=== PATIENT | male | born 1950 | race Caucasian/White ===

== ENCOUNTER 2020-12-12 09:10 | Inpatient (IN) | payer MEDICARE, OTHER ==
[2020-12-12] MEDS ORDERED: Sodium Chloride 0.9% 1,000 ML IV ONE ×3 (09:26→15:34)
[2020-12-12] MEDS ORDERED: Bamlanivimab 700 MG, ETESEVIMAB 1,400 MG in Sodium Chloride 0.9% 100 ML IV ONE (10:00)
[2020-12-12] MEDS: Sodium Chloride 0.9% 10 ML Syringe FLUSH SCH (10:54)
--- NOTE | 2020-12-12 12:03 | CR ---
INDICATION: Positive COVID 12/12/20. CHEST, ONE VIEW: AP upright portable view of the chest was obtained 12/12/20 - no comparison. There is some patchy infiltration in the right upper middle through lower lung field on the right. There may be some minimal infiltrate also in the left lower lung field, including costophrenic angle area. Findings likely represent pneumonia, but should be correlated clinically. Early COVID-19 pneumonia may be present. The heart appeared prominent, but not grossly enlarged. The aorta is tortuous with calcification in the arch. IMPRESSION: 1. Bilateral pneumonia, right greater than left. 2. Probable ASHD. MTDD
[2020-12-12] MEDS ORDERED: Aspirin 81 MG Tab.Chew PO ONE (13:09)
[2020-12-12] MEDS ORDERED: Ticagrelor 90 MG Tab PO ONE (13:09)
[2020-12-12] MEDS ORDERED: Heparin Sodium 5,000 Units/ML Vial IVPUSH ONE (13:13)
[2020-12-12] MEDS ORDERED: Heparin Sodium/D5W 25,000 UNITS/500 ML BAG IV SCH (13:15)
[2020-12-12] MEDS ORDERED: Heparin Sodium/0.45% NaCl 25,000 UNITS/500 ML BAG IV SCH (13:30)
--- NOTE | 2020-12-12 16:04 | EDM.PDOC ---
ED HPI GENERAL MEDICAL PROBLEM - General Chief Complaint: General Stated Complaint: FALL Time Seen by Provider: 12/12/20 09:15 Source of Information: Reports: Patient History Limitations: Reports: No Limitations - History of Present Illness INITIAL COMMENTS - FREE TEXT/NARRATIVE: c/o fall from bed pt with fever and slight cough 5d ago, went to clinic 3d ago and dx with COVID lives alone, says he rolls around in his sleep, rolled out of bed this AM and found himself on the floor, too weak to get up, crawled to the phone and called 911 EMS found him on the floor, alert, and brought him here only c/o is weakness and occasional nonproductive cough, skin and clothes were damp on arrival as per RN altho were dry when I examined him no pain only med is propranolol for HTN lives alone has a tremor in his hands that is old, takes no meds for it - Related Data Allergies Allergy/AdvReac Type Severity Reaction Status Date / Time Penicillins Allergy Other Verified 12/12/20 09:30 Home Meds: Home Meds Aspirin 81 mg PO DAILY 12/12/20 [History] Multivit-Min/Iron/Folic Acid/K [Centravites Adults Tablet] 1 each PO DAILY 12/12/20 [History] Propranolol [Propranolol CR 24 Hr] 120 mg PO DAILY 12/12/20 [History] Past Medical History Cardiovascular History: Reports: Hypertension Neurological History: Reports: Other (See Below) Other Neuro History: Patient has tremors stated they did all the tests for par kinsons and ruled it out, unsure of cause. - Infectious Disease History Infectious Disease History: Reports: Chicken Pox, Measles, Mumps, Novel Coronavirus Social & Family History - Tobacco Use Tobacco Use Status *Q: Unknown Ever Used Tobacco - Caffeine Use Caffeine Use: Reports: Coffee - Alcohol Use Days Per Week of Alcohol Use: 1 Number of Drinks Per Day: 4 Total Drinks Per Week: 4 - Recreational Drug Use Recreational Drug Use: No ED ROS GENERAL - Review of Systems Review Of Systems: See Below Constitutional: Reports: Fever, Weakness, Fatigue, Diaphoresis, Decreased Appetite HEENT: Reports: No Symptoms Respiratory: Reports: Cough Cardiovascular: Reports: No Symptoms Endocrine: Reports: No Symptoms GI/Abdominal: Reports: No Symptoms : Reports: No Symptoms Musculoskeletal: Reports: No Symptoms Skin: Reports: No Symptoms Neurological: Reports: No Symptoms Psychiatric: Reports: No Symptoms Hematologic/Lymphatic: Reports: No Symptoms Immunologic: Reports: No Symptoms ED EXAM, GENERAL - Physical Exam Exam: See Below Exam Limited By: No Limitations General Appearance: Alert, WD/WN, No Apparent Distress, Other (alert, pleasant, NAD) Nose: Normal Inspection Throat/Mouth: Normal Inspection, Normal Voice, No Airway Compromise Head: Atraumatic, Normocephalic Neck: Normal Inspection, Supple, Non-Tender, Full Range of Motion. No: Lymphadenopathy (R), Lymphadenopathy (L) Respiratory/Chest: No Respiratory Distress, Lungs Clear, Normal Breath Sounds, Chest Non-Tender Cardiovascular: Regular Rate, Rhythm, No Edema, Other (2/6 DESTINEE at LSB) GI/Abdominal: Soft, Non-Tender, No Distention Back Exam: Normal Inspection, Full Range of Motion Extremities: Normal Inspection, Normal Range of Motion, Non-Tender, No Pedal Edema Neurological: Alert, Oriented, CN II-XII Intact, Normal Cognition, No Motor/Sensory Deficits Psychiatric: Normal Affect, Normal Mood Skin Exam: Warm, Dry, Intact, Normal Color, No Rash Lymphatic: No Adenopathy Course - Vital Signs Last Recorded V/S: Last Vital Signs Temp 36.4 C 12/12/20 10:16 Pulse 72 12/12/20 10:51 Resp 18 12/12/20 10:51 BP 101/57 L 12/12/20 10:51 Pulse Ox 95 12/12/20 10:51 - Orders/Labs/Meds Orders: Active Orders 24 hr Category Date Time Status EKG Documentation Completion [RC] ASDIRECTED Care 12/12/20 09:27 Active EKG Documentation Completion [RC] ASDIRECTED Care 12/12/20 13:11 Active Oxygen Therapy, ED [RC] ASDIRECTED Care 12/12/20 13:12 Active Vital Signs [RC] Q15M Care 12/12/20 09:31 Active CREATINE KINASE,CK [CHEM] Timed Lab 12/12/20 17:00 Ordered D-DIMER QUANTITATIVE [COAG] Stat Lab 12/12/20 15:49 Ordered TROPONIN I [CHEM] Routine Lab 12/12/20 17:00 Ordered aPTT [PTT,PARTIAL THROMBOPLSTIN TIME] [COAG] Q6H Lab 12/12/20 19:00 Ordered aPTT [PTT,PARTIAL THROMBOPLSTIN TIME] [COAG] Q6 Lab 12/13/20 01:00 Ordered aPTT [PTT,PARTIAL THROMBOPLSTIN TIME] [COAG] Q6 Lab 12/13/20 07:00 Ordered aPTT [PTT,PARTIAL THROMBOPLSTIN TIME] [COAG] Q6 Lab 12/13/20 13:00 Ordered aPTT [PTT,PARTIAL THROMBOPLSTIN TIME] [COAG] Q6 Lab 12/13/20 19:00 Ordered aPTT [PTT,PARTIAL THROMBOPLSTIN TIME] [COAG] Q6 Lab 12/14/20 01:00 Ordered Heparin Sodium/0.45% NaCl [Heparin 25,000 Units in 1/2 Med 12/12/20 13:30 Active NS 500 ML] 25,000 units in 500 ml IV TITRATE Sodium Chloride 0.9% [Normal Saline] 1,000 ml Med 12/12/20 15:34 Active IV .BOLUS Sodium Chloride 0.9% [Saline Flush] Med 12/12/20 09:45 Active 30 ml FLUSH ASDIRECTED EKG 12 Lead [EK] Routine Ther 12/12/20 09:26 Ordered EKG 12 Lead [EK] Routine Ther 12/12/20 13:10 Ordered EKG 12 Lead [EK] Routine Ther 12/12/20 17:00 Ordered Medication Orders Heparin Sodium/Sodium Chloride (Heparin 25,000 Units In 1/2 Ns 500 Ml) 25,000 units in 500 mls @ 19.998 mls/hr IV TITRATE WILDA; Protocol Last Admin: 12/12/20 13:38 Dose: 10.02 units/kg/hr, 19.998 mls/hr Documented by: JAMES Cosigned by: TIMO Sodium Chloride (Normal Saline) 1,000 mls @ 999 mls/hr IV .BOLUS ONE Stop: 12/12/20 16:34 Last Admin: 12/12/20 15:40 Dose: 999 mls/hr Documented by: JAMES Sodium Chloride (Sodium Chloride 0.9% 10 Ml Syringe) 30 ml FLUSH ASDIRECTED WILDA Labs: Laboratory Tests 12/12/20 12/12/20 12/12/20 Range/Units 09:50 09:50 09:50 WBC 4.6 (3.2-10.1) x10-3/uL RBC 5.24 (3.90-5.90) x10(6)uL Hgb 16.1 (12.9-17.7) g/dL Hct 49.8 (38.3-50.1) % MCV 95.2 (80.8-98.7) fL MCH 30.8 (27.0-33.3) pg MCHC 32.4 (28.7-35.3) g/dL RDW 13.5 (12.4-15.0) % Plt Count 117 (117-477) x10(3)uL MPV 7.5 (6.7-11.0) fL Neut % (Auto) 78.5 H (40.3-71.8) % Lymph % (Auto) 11.7 L (15.8-45.3) % [place] % (Auto) 9.3 (5.5-15.2) % Eos % (Auto) 0.0 L (0.1-6.8) % Baso % (Auto) 0.5 (0.3-3.8) % Neut # (Auto) 3.6 (1.7-6.9) x10-3/uL Lymph # (Auto) 0.5 (0.5-4.5) x10-3/uL [place] # (Auto) 0.4 (0.0-1.2) x10-3/uL Eos # (Auto) 0.0 (0.0-0.6) x10-3/uL Baso # (Auto) 0.0 (0.0-0.3) x10-3/uL PT (9.0-11.1) sec INR (1.00-1.24) APTT (24.4-33.2) SECONDS Sodium 136 (135-145) mmol/L Potassium 4.6 (3.5-5.3) mmol/L Chloride 100 (100-110) mmol/L Carbon Dioxide 25 (21-32) mmol/L BUN 31 H (7-18) mg/dL Creatinine 1.6 H (0.70-1.30) mg/dL Est Cr Clr Drug Dosing TNP Estimated GFR (MDRD) 43 L (>60) BUN/Creatinine Ratio 19.4 (9-20) Glucose 97 (80-116) mg/dL Calcium 9.0 (8.6-10.2) mg/dL Total Bilirubin 0.9 (0.1-1.3) mg/dL AST 63 H (5-25) IU/L ALT 42 H (12-36) U/L Alkaline Phosphatase 89 (56-112) IU/L Creatine Kinase (60-160) IU/L Troponin I 124.4 H* (4.0-60.3) pg/mL C-Reactive Protein 5.5 H* (0.5-0.9) mg/dL Total Protein 7.1 (6.0-8.0) g/dL Albumin 3.6 (3.2-4.6) g/dL Globulin 3.5 g/dL Albumin/Globulin Ratio 1.0 TSH, Ultra Sensitive (0.36-3.74) IU/mL Urine Color (YELLOW) Urine Appearance (CLEAR) Urine pH (5.0-6.5) Ur Specific [place] (1.010-1.025) Urine Protein (NEGATIVE) mg/dL Urine Glucose (UA) (NORMAL) mg/dL Urine Ketones (NEGATIVE) mg/dL Urine Occult Blood (NEGATIVE) Urine Nitrite (NEGATIVE) Urine Bilirubin (NEGATIVE) Urine Urobilinogen (NEGATIVE) mg/dL Ur Leukocyte Esterase (NEGATIVE) Urine RBC (0-5) Urine WBC (0-5) Ur Squamous Epith Cells (NS,R,O) Urine Bacteria (NS) Coarse Granular Casts (NS) 12/12/20 12/12/20 12/12/20 Range/Units 09:50 09:50 09:50 WBC (3.2-10.1) x10-3/uL RBC (3.90-5.90) x10(6)uL Hgb (12.9-17.7) g/dL Hct (38.3-50.1) % MCV (80.8-98.7) fL MCH (27.0-33.3) pg MCHC (28.7-35.3) g/dL RDW (12.4-15.0) % Plt Count (117-477) x10(3)uL MPV (6.7-11.0) fL Neut % (Auto) (40.3-71.8) % Lymph % (Auto) (15.8-45.3) % [place] % (Auto) (5.5-15.2) % Eos % (Auto) (0.1-6.8) % Baso % (Auto) (0.3-3.8) % Neut # (Auto) (1.7-6.9) x10-3/uL Lymph # (Auto) (0.5-4.5) x10-3/uL [place] # (Auto) (0.0-1.2) x10-3/uL Eos # (Auto) (0.0-0.6) x10-3/uL Baso # (Auto) (0.0-0.3) x10-3/uL PT 10.7 (9.0-11.1) sec INR 0.99 L (1.00-1.24) APTT 30.4 (24.4-33.2) SECONDS Sodium (135-145) mmol/L Potassium (3.5-5.3) mmol/L Chloride (100-110) mmol/L Carbon Dioxide (21-32) mmol/L BUN (7-18) mg/dL Creatinine (0.70-1.30) mg/dL Est Cr Clr Drug Dosing Estimated GFR (MDRD) (>60) BUN/Creatinine Ratio (9-20) Glucose (80-116) mg/dL Calcium (8.6-10.2) mg/dL Total Bilirubin (0.1-1.3) mg/dL AST (5-25) IU/L ALT (12-36) U/L Alkaline Phosphatase (56-112) IU/L Creatine Kinase 1465 H* (60-160) IU/L Troponin I (4.0-60.3) pg/mL C-Reactive Protein (0.5-0.9) mg/dL Total Protein (6.0-8.0) g/dL Albumin (3.2-4.6) g/dL Globulin g/dL Albumin/Globulin Ratio TSH, Ultra Sensitive 2.06 (0.36-3.74) IU/mL Urine Color (YELLOW) Urine Appearance (CLEAR) Urine pH (5.0-6.5) Ur Specific [place] (1.010-1.025) Urine Protein (NEGATIVE) mg/dL Urine Glucose (UA) (NORMAL) mg/dL Urine Ketones (NEGATIVE) mg/dL Urine Occult Blood (NEGATIVE) Urine Nitrite (NEGATIVE) Urine Bilirubin (NEGATIVE) Urine Urobilinogen (NEGATIVE) mg/dL Ur Leukocyte Esterase (NEGATIVE) Urine RBC (0-5) Urine WBC (0-5) Ur Squamous Epith Cells (NS,R,O) Urine Bacteria (NS) Coarse Granular Casts (NS) 12/12/20 12/12/20 Range/Units 12:00 14:00 WBC (3.2-10.1) x10-3/uL RBC (3.90-5.90) x10(6)uL Hgb (12.9-17.7) g/dL Hct (38.3-50.1) % MCV (80.8-98.7) fL MCH (27.0-33.3) pg MCHC (28.7-35.3) g/dL RDW (12.4-15.0) % Plt Count (117-477) x10(3)uL MPV (6.7-11.0) fL Neut % (Auto) (40.3-71.8) % Lymph % (Auto) (15.8-45.3) % [place] % (Auto) (5.5-15.2) % Eos % (Auto) (0.1-6.8) % Baso % (Auto) (0.3-3.8) % Neut # (Auto) (1.7-6.9) x10-3/uL Lymph # (Auto) (0.5-4.5) x10-3/uL [place] # (Auto) (0.0-1.2) x10-3/uL Eos # (Auto) (0.0-0.6) x10-3/uL Baso # (Auto) (0.0-0.3) x10-3/uL PT (9.0-11.1) sec INR (1.00-1.24) APTT (24.4-33.2) SECONDS Sodium (135-145) mmol/L Potassium (3.5-5.3) mmol/L Chloride (100-110) mmol/L Carbon Dioxide (21-32) mmol/L BUN (7-18) mg/dL Creatinine (0.70-1.30) mg/dL Est Cr Clr Drug Dosing Estimated GFR (MDRD) (>60) BUN/Creatinine Ratio (9-20) Glucose (80-116) mg/dL Calcium (8.6-10.2) mg/dL Total Bilirubin (0.1-1.3) mg/dL AST (5-25) IU/L ALT (12-36) U/L Alkaline Phosphatase (56-112) IU/L Creatine Kinase (60-160) IU/L Troponin I 387.1 H* (4.0-60.3) pg/mL C-Reactive Protein (0.5-0.9) mg/dL Total Protein (6.0-8.0) g/dL Albumin (3.2-4.6) g/dL Globulin g/dL Albumin/Globulin Ratio TSH, Ultra Sensitive (0.36-3.74) IU/mL Urine Color Yellow (YELLOW) Urine Appearance Slightly cloudy (CLEAR) Urine pH 5.0 (5.0-6.5) Ur Specific [place] 1.030 H (1.010-1.025) Urine Protein 500 H (NEGATIVE) mg/dL Urine Glucose (UA) Normal (NORMAL) mg/dL Urine Ketones 50 H (NEGATIVE) mg/dL Urine Occult Blood Large H (NEGATIVE) Urine Nitrite Negative (NEGATIVE) Urine Bilirubin Negative (NEGATIVE) Urine Urobilinogen Normal (NEGATIVE) mg/dL Ur Leukocyte Esterase Negative (NEGATIVE) Urine RBC 0-5 (0-5) Urine WBC 0-5 (0-5) Ur Squamous Epith Cells Occasional (NS,R,O) Urine Bacteria Few H (NS) Coarse Granular Casts Few H (NS) Meds: Medications Generic Name Dose Route Start Last Admin Trade Name Chencho PRN Reason Stop Dose Admin Heparin Sodium/Sodium Chloride 25,000 units in 500 mls @ 19.998 mls/hr 12/12/20 13:30 12/12/20 13:38 Heparin 25,000 Units In 1/2 Ns 500 Ml IV 10.02 units/kg/hr TITRATE WILDA 19.998 mls/hr Administration Protocol 10.02 UNITS/KG/HR Sodium Chloride 1,000 mls @ 999 mls/hr 12/12/20 15:34 12/12/20 15:40 Normal Saline IV 12/12/20 16:34 999 mls/hr .BOLUS ONE Administration Sodium Chloride 30 ml 12/12/20 09:45 Sodium Chloride 0.9% 10 Ml Syringe FLUSH ASDIRECTED WILDA Discontinued Medications Generic Name Dose Route Start Last Admin Trade Name Chencho PRN Reason Stop Dose Admin Aspirin 324 mg 12/12/20 13:09 12/12/20 13:37 Aspirin 81 Mg Tab.Chew PO 12/12/20 13:10 324 mg ONETIME ONE Administration Heparin Sodium (Porcine) 5,000 units 12/12/20 13:13 12/12/20 13:37 Heparin Sodium 5,000 Units/Ml Vial IVPUSH 12/12/20 13:14 5,000 units ONETIME ONE Administration Sodium Chloride 1,000 mls @ 999 mls/hr 12/12/20 09:26 12/12/20 09:40 Normal Saline IV 12/12/20 10:26 999 mls/hr .BOLUS ONE Administration Bamlanivimab 700 mg/ 160 mls @ 310 mls/hr 12/12/20 10:00 12/12/20 10:08 Etesevimab 1,400 mg/ Sodium IV 12/12/20 10:30 310 mls/hr Chloride ONETIME ONE Administration Sodium Chloride 1,000 mls @ 999 mls/hr 12/12/20 13:40 12/12/20 13:40 Normal Saline IV 12/12/20 14:40 999 mls/hr .BOLUS ONE Administration Ticagrelor 180 mg 12/12/20 13:09 12/12/20 13:37 Ticagrelor 90 Mg Tab PO 12/12/20 13:10 180 mg ONETIME ONE Administration - Re-Assessments/Exams Free Text/Narrative Re-Assessment/Exam: 12/12/20 16:29 15:55 d/w Dr Shivam Wasserman cardiology who said that transfer of pt not needed, she recommended continuing anticoagulation for 24 hours, d/c on ASA and BB and NTG SL prn, with outpt f/u with cardiology will change from heparin drip to Lovenox as this works better on the floor pt has remained stable, he likely was mildly hypoxic d/t his COVID pneumonia during the night, precipitating the [place], pt has been 93-97-5 on RA here, yet d/t the risk of hypoxia when he falls asleep, will keep him on O2 2/min IV 4:50p d/w Dr Malcolm who accepted pt in admission Departure - Departure Time of Disposition: 16:07 Disposition: Admitted As Inpatient 66 Condition: Fair Clinical Impression: Pneumonia due to COVID-19 virus, Rhabdomyolysis, NSTEMI (non-ST elevated myocardial infarction), Moderate dehydration, Ketonuria, Fall from bed, Abrasion of both knees, Acute renal insufficiency, Elevated liver function tests - Discharge Information *PRESCRIPTION DRUG MONITORING PROGRAM REVIEWED*: Not Applicable *COPY OF PRESCRIPTION DRUG MONITORING REPORT IN PATIENT KENDRICK: Not Applicable Referrals: Mark Lockett MD [Primary Care Provider] - Forms: ED Department Discharge Sepsis Event Note (ED) - Evaluation Sepsis Screening Result: No Definite Risk - Focused Exam Vital Signs: Vital Signs Temp Pulse Resp BP Pulse Ox 12/12/20 10:51 72 18 101/57 L 95 12/12/20 10:45 74 16 94/57 L 95 12/12/20 10:35 77 16 101/64 95 12/12/20 10:32 75 16 95/56 L 95 12/12/20 10:31 77 16 99/58 L 95 12/12/20 10:16 36.4 C 79 16 118/63 94 L 12/12/20 09:12 36.4 C 85 18 134/66 94 L - My Orders Last 24 Hours: My Active Orders 12/12/20 09:26 EKG 12 Lead [EK] Routine 12/12/20 09:27 EKG Documentation Completion [RC] ASDIRECTED 12/12/20 09:31 Vital Signs [RC] Q15M 12/12/20 09:45 Sodium Chloride 0.9% [Saline Flush] 30 ml FLUSH ASDIRECTED 12/12/20 13:10 EKG 12 Lead [EK] Routine 12/12/20 13:11 EKG Documentation Completion [RC] ASDIRECTED 12/12/20 13:12 Oxygen Therapy, ED [RC] ASDIRECTED 12/12/20 13:30 Heparin Sodium/0.45% NaCl [Heparin 25,000 Units in 1/2 NS 500 ML] 25,000 units in 500 ml IV TITRATE 12/12/20 15:34 Sodium Chloride 0.9% [Normal Saline] 1,000 ml IV .BOLUS 12/12/20 15:49 D-DIMER QUANTITATIVE [COAG] Stat 12/12/20 17:00 CREATINE KINASE,CK [CHEM] Timed TROPONIN I [CHEM] Routine EKG 12 Lead [EK] Routine 12/12/20 19:00 aPTT [PTT,PARTIAL THROMBOPLSTIN TIME] [COAG] Q6H 12/13/20 01:00 aPTT [PTT,PARTIAL THROMBOPLSTIN TIME] [COAG] Q6H 12/13/20 07:00 aPTT [PTT,PARTIAL THROMBOPLSTIN TIME] [COAG] Q6H 12/13/20 13:00 aPTT [PTT,PARTIAL THROMBOPLSTIN TIME] [COAG] Q6H 12/13/20 19:00 aPTT [PTT,PARTIAL THROMBOPLSTIN TIME] [COAG] Q6H 12/14/20 01:00 aPTT [PTT,PARTIAL THROMBOPLSTIN TIME] [COAG] Q6H - Assessment/Plan Last 24 Hours: My Active Orders 12/12/20 09:26 EKG 12 Lead [EK] Routine 12/12/20 09:27 EKG Documentation Completion [RC] ASDIRECTED 12/12/20 09:31 Vital Signs [RC] Q15M 12/12/20 09:45 Sodium Chloride 0.9% [Saline Flush] 30 ml FLUSH ASDIRECTED 12/12/20 13:10 EKG 12 Lead [EK] Routine 12/12/20 13:11 EKG Documentation Completion [RC] ASDIRECTED 12/12/20 13:12 Oxygen Therapy, ED [RC] ASDIRECTED 12/12/20 13:30 Heparin Sodium/0.45% NaCl [Heparin 25,000 Units in 1/2 NS 500 ML] 25,000 units in 500 ml IV TITRATE 12/12/20 15:34 Sodium Chloride 0.9% [Normal Saline] 1,000 ml IV .BOLUS 12/12/20 15:49 D-DIMER QUANTITATIVE [COAG] Stat 12/12/20 17:00 CREATINE KINASE,CK [CHEM] Timed TROPONIN I [CHEM] Routine EKG 12 Lead [EK] Routine 12/12/20 19:00 aPTT [PTT,PARTIAL THROMBOPLSTIN TIME] [COAG] Q6H 12/13/20 01:00 aPTT [PTT,PARTIAL THROMBOPLSTIN TIME] [COAG] Q6H 12/13/20 07:00 aPTT [PTT,PARTIAL THROMBOPLSTIN TIME] [COAG] Q6H 11/06/21 13:00 aPTT [PTT,PARTIAL THROMBOPLSTIN TIME] [COAG] Q6H 12/13/20 19:00 aPTT [PTT,PARTIAL THROMBOPLSTIN TIME] [COAG] Q6H 12/14/20 01:00 aPTT [PTT,PARTIAL THROMBOPLSTIN TIME] [COAG] Q6H
[2020-12-12] MEDS: Enoxaparin 100 MG/1 ML Syringe SUBCUT SCH (17:00)
--- NOTE | 2020-12-12 18:22 | PCM.EKG ---
#1 Interpretation EKG Date: 12/12/20 Time: 17:51 EKG Interpretation Comments: Patient has left upper extremity essential tremor which yields very poor baseline quality. Leads II, 3, aVF are unreadable. However, there appears to be ST-T segment abnormalities in the lateral leads that would suggest lateral ischemia. Once again this is unreliable.
[2020-12-12] MEDS ORDERED: Enoxaparin 100 MG/1 ML Syringe SUBCUT SCH (18:30)
--- NOTE | 2020-12-12 18:35 | PCM.HP.2 ---
H&P History of Present Illness - General Date of Service: 12/12/20 Admit Problem/Dx: Admission Diagnosis/Problem Admission Diagnosis/Problem Pneumonia Source of Information: Patient, Provider - History of Present Illness Initial Comments - Free Text/Narative: 70-year-old gentleman came to the emergency department after becoming so weak that he fell to the floor and had to crawl to the door to ask for help. He was brought to the emergency department by EMS. His recent past medical history is significant for having been diagnosed with COVID-19 approximately 2 days ago. In the emergency department he was found to have significantly elevated troponin likely secondary to demand ischemia secondary to hypoxia. He also had elevated CK likely due to being on the floor for approximately 1 hour. He has abrasions on his shins, knees, hands, elbows. He also has mild acute kidney injury. His past medical history is mild and is only significant for mild hypertension and essential tremor treated with propranolol. - Related Data Allergies/Adverse Reactions: Allergies Allergy/AdvReac Type Severity Reaction Status Date / Time Penicillins Allergy Other Verified 12/12/20 09:30 Home Medications: Home Meds Aspirin 81 mg PO DAILY 12/12/20 [History] Multivit-Min/Iron/Folic Acid/K [Centravites Adults Tablet] 1 each PO DAILY 12/12/20 [History] Propranolol [Propranolol CR 24 Hr] 120 mg PO DAILY 12/12/20 [History] Past Medical History Cardiovascular History: Reports: Hypertension Neurological History: Reports: Other (See Below) Other Neuro History: Patient has tremors stated they did all the tests for parkinsons and ruled it out, unsure of cause. - Infectious Disease History Infectious Disease History: Reports: Chicken Pox, Measles, Mumps, Novel Coronavirus Social & Family History - Tobacco Use Tobacco Use Status *Q: Never Tobacco User Second Hand Smoke Exposure: No - Caffeine Use Caffeine Use: Reports: Coffee - Alcohol Use Days Per Week of Alcohol Use: 1 Number of Drinks Per Day: 4 Total Drinks Per Week: 4 - Recreational Drug Use Recreational Drug Use: No H&P Review of Systems - Review of Systems: Review Of Systems: See Below General: Reports: Weakness HEENT: Reports: No Symptoms Pulmonary: Reports: Shortness of Breath, Cough Cardiovascular: Reports: No Symptoms Gastrointestinal: Reports: No Symptoms Genitourinary: Reports: No Symptoms Musculoskeletal: Reports: No Symptoms Skin: Reports: Other (Abrasions after crawling on the floor) Psychiatric: Reports: No Symptoms Neurological: Reports: No Symptoms Hematologic/Lymphatic: Reports: No Symptoms Immunologic: Reports: No Symptoms Exam - Exam Exam: See Below - Vital Signs Vital Signs: Last Vital Signs Temp 37.7 C 12/12/20 17:30 Pulse 78 12/12/20 17:30 Resp 18 12/12/20 17:30 BP 117/64 12/12/20 17:30 Pulse Ox 96 12/12/20 17:30 Weight: 102.421 kg - Exam Quality Assessment: Supplemental Oxygen, DVT Prophylaxis General: Alert, Oriented, Cooperative HEENT: EOMI Neck: Supple Lungs: Crackles Cardiovascular: Regular Rate, Regular Rhythm GI/Abdominal Exam: Normal Bowel Sounds, Soft, Non-Tender Back Exam: Normal Inspection. No: CVA Tenderness (R), CVA Tenderness (L) Extremities: Normal Inspection, No Pedal Edema Peripheral Pulses: 2+: Radial (L), Radial (R), Dorsalis Pedis (L), Dorsalis Pedis (R) Skin: Other (Mild abrasion on shins, knees, forearms/elbows, no bleeding or discharge at this time) Neurological: Cranial Nerves Intact Neuro Extensive - Mental Status: Alert, Oriented x3, Normal Mood/Affect, Normal Cognition Psychiatric: Alert, Normal Affect - Patient Data Lab Results Last 24 hrs: Laboratory Results - last 24 hr 12/12/20 12/12/20 12/12/20 Range/Units 09:50 09:50 09:50 WBC 4.6 (3.2-10.1) x10-3/uL RBC 5.24 (3.90-5.90) x10(6)uL Hgb 16.1 (12.9-17.7) g/dL Hct 49.8 (38.3-50.1) % MCV 95.2 (80.8-98.7) fL MCH 30.8 (27.0-33.3) pg MCHC 32.4 (28.7-35.3) g/dL RDW 13.5 (12.4-15.0) % Plt Count 117 (117-477) x10(3)uL MPV 7.5 (6.7-11.0) fL Neut % (Auto) 78.5 H (40.3-71.8) % Lymph % (Auto) 11.7 L (15.8-45.3) % Howell % (Auto) 9.3 (5.5-15.2) % Eos % (Auto) 0.0 L (0.1-6.8) % Baso % (Auto) 0.5 (0.3-3.8) % Neut # (Auto) 3.6 (1.7-6.9) x10-3/uL Lymph # (Auto) 0.5 (0.5-4.5) x10-3/uL Howell # (Auto) 0.4 (0.0-1.2) x10-3/uL Eos # (Auto) 0.0 (0.0-0.6) x10-3/uL Baso # (Auto) 0.0 (0.0-0.3) x10-3/uL PT (9.0-11.1) sec INR (1.00-1.24) APTT (24.4-33.2) SECONDS Sodium 136 (135-145) mmol/L Potassium 4.6 (3.5-5.3) mmol/L Chloride 100 (100-110) mmol/L Carbon Dioxide 25 (21-32) mmol/L BUN 31 H (7-18) mg/dL Creatinine 1.6 H (0.70-1.30) mg/dL Est Cr Clr Drug Dosing TNP Estimated GFR (MDRD) 43 L (>60) BUN/Creatinine Ratio 19.4 (9-20) Glucose 97 (80-116) mg/dL Calcium 9.0 (8.6-10.2) mg/dL Total Bilirubin 0.9 (0.1-1.3) mg/dL AST 63 H (5-25) IU/L ALT 42 H (12-36) U/L Alkaline Phosphatase 89 (56-112) IU/L Creatine Kinase (60-160) IU/L Troponin I 124.4 H* (4.0-60.3) pg/mL C-Reactive Protein 5.5 H* (0.5-0.9) mg/dL Total Protein 7.1 (6.0-8.0) g/dL Albumin 3.6 (3.2-4.6) g/dL Globulin 3.5 g/dL Albumin/Globulin Ratio 1.0 TSH, Ultra Sensitive (0.36-3.74) IU/mL Urine Color (YELLOW) Urine Appearance (CLEAR) Urine pH (5.0-6.5) Ur Specific [place] (1.010-1.025) Urine Protein (NEGATIVE) mg/dL Urine Glucose (UA) (NORMAL) mg/dL Urine Ketones (NEGATIVE) mg/dL Urine Occult Blood (NEGATIVE) Urine Nitrite (NEGATIVE) Urine Bilirubin (NEGATIVE) Urine Urobilinogen (NEGATIVE) mg/dL Ur Leukocyte Esterase (NEGATIVE) Urine RBC (0-5) Urine WBC (0-5) Ur Squamous Epith Cells (NS,R,O) Urine Bacteria (NS) Coarse Granular Casts (NS) 12/12/20 12/12/20 12/12/20 Range/Units 09:50 09:50 09:50 WBC (3.2-10.1) x10-3/uL RBC (3.90-5.90) x10(6)uL Hgb (12.9-17.7) g/dL Hct (38.3-50.1) % MCV (80.8-98.7) fL MCH (27.0-33.3) pg MCHC (28.7-35.3) g/dL RDW (12.4-15.0) % Plt Count (117-477) x10(3)uL MPV (6.7-11.0) fL Neut % (Auto) (40.3-71.8) % Lymph % (Auto) (15.8-45.3) % Howell % (Auto) (5.5-15.2) % Eos % (Auto) (0.1-6.8) % Baso % (Auto) (0.3-3.8) % Neut # (Auto) (1.7-6.9) x10-3/uL Lymph # (Auto) (0.5-4.5) x10-3/uL Howell # (Auto) (0.0-1.2) x10-3/uL Eos # (Auto) (0.0-0.6) x10-3/uL Baso # (Auto) (0.0-0.3) x10-3/uL PT 10.7 (9.0-11.1) sec INR 0.99 L (1.00-1.24) APTT 30.4 (24.4-33.2) SECONDS Sodium (135-145) mmol/L Potassium (3.5-5.3) mmol/L Chloride (100-110) mmol/L Carbon Dioxide (21-32) mmol/L BUN (7-18) mg/dL Creatinine (0.70-1.30) mg/dL Est Cr Clr Drug Dosing Estimated GFR (MDRD) (>60) BUN/Creatinine Ratio (9-20) Glucose (80-116) mg/dL Calcium (8.6-10.2) mg/dL Total Bilirubin (0.1-1.3) mg/dL AST (5-25) IU/L ALT (12-36) U/L Alkaline Phosphatase (56-112) IU/L Creatine Kinase 1465 H* (60-160) IU/L Troponin I (4.0-60.3) pg/mL C-Reactive Protein (0.5-0.9) mg/dL Total Protein (6.0-8.0) g/dL Albumin (3.2-4.6) g/dL Globulin g/dL Albumin/Globulin Ratio TSH, Ultra Sensitive 2.06 (0.36-3.74) IU/mL Urine Color (YELLOW) Urine Appearance (CLEAR) Urine pH (5.0-6.5) Ur Specific [place] (1.010-1.025) Urine Protein (NEGATIVE) mg/dL Urine Glucose (UA) (NORMAL) mg/dL Urine Ketones (NEGATIVE) mg/dL Urine Occult Blood (NEGATIVE) Urine Nitrite (NEGATIVE) Urine Bilirubin (NEGATIVE) Urine Urobilinogen (NEGATIVE) mg/dL Ur Leukocyte Esterase (NEGATIVE) Urine RBC (0-5) Urine WBC (0-5) Ur Squamous Epith Cells (NS,R,O) Urine Bacteria (NS) Coarse Granular Casts (NS) 12/12/20 12/12/20 Range/Units 12:00 14:00 WBC (3.2-10.1) x10-3/uL RBC (3.90-5.90) x10(6)uL Hgb (12.9-17.7) g/dL Hct (38.3-50.1) % MCV (80.8-98.7) fL MCH (27.0-33.3) pg MCHC (28.7-35.3) g/dL RDW (12.4-15.0) % Plt Count (117-477) x10(3)uL MPV (6.7-11.0) fL Neut % (Auto) (40.3-71.8) % Lymph % (Auto) (15.8-45.3) % Howell % (Auto) (5.5-15.2) % Eos % (Auto) (0.1-6.8) % Baso % (Auto) (0.3-3.8) % Neut # (Auto) (1.7-6.9) x10-3/uL Lymph # (Auto) (0.5-4.5) x10-3/uL Howell # (Auto) (0.0-1.2) x10-3/uL Eos # (Auto) (0.0-0.6) x10-3/uL Baso # (Auto) (0.0-0.3) x10-3/uL PT (9.0-11.1) sec INR (1.00-1.24) APTT (24.4-33.2) SECONDS Sodium (135-145) mmol/L Potassium (3.5-5.3) mmol/L Chloride (100-110) mmol/L Carbon Dioxide (21-32) mmol/L BUN (7-18) mg/dL Creatinine (0.70-1.30) mg/dL Est Cr Clr Drug Dosing Estimated GFR (MDRD) (>60) BUN/Creatinine Ratio (9-20) Glucose (80-116) mg/dL Calcium (8.6-10.2) mg/dL Total Bilirubin (0.1-1.3) mg/dL AST (5-25) IU/L ALT (12-36) U/L Alkaline Phosphatase (56-112) IU/L Creatine Kinase (60-160) IU/L Troponin I 387.1 H* (4.0-60.3) pg/mL C-Reactive Protein (0.5-0.9) mg/dL Total Protein (6.0-8.0) g/dL Albumin (3.2-4.6) g/dL Globulin g/dL Albumin/Globulin Ratio TSH, Ultra Sensitive (0.36-3.74) IU/mL Urine Color Yellow (YELLOW) Urine Appearance Slightly cloudy (CLEAR) Urine pH 5.0 (5.0-6.5) Ur Specific [place] 1.030 H (1.010-1.025) Urine Protein 500 H (NEGATIVE) mg/dL Urine Glucose (UA) Normal (NORMAL) mg/dL Urine Ketones 50 H (NEGATIVE) mg/dL Urine Occult Blood Large H (NEGATIVE) Urine Nitrite Negative (NEGATIVE) Urine Bilirubin Negative (NEGATIVE) Urine Urobilinogen Normal (NEGATIVE) mg/dL Ur Leukocyte Esterase Negative (NEGATIVE) Urine RBC 0-5 (0-5) Urine WBC 0-5 (0-5) Ur Squamous Epith Cells Occasional (NS,R,O) Urine Bacteria Few H (NS) Coarse Granular Casts Few H (NS) Result Diagrams: 12/12/20 09:50 12/12/20 09:50 Sepsis Event Note - Evaluation Sepsis Screening Result: No Definite Risk - Focused Exam Vital Signs: Vital Signs Temp Pulse Resp BP Pulse Ox 12/12/20 17:30 37.7 C 78 18 117/64 96 12/12/20 10:51 72 18 101/57 L 95 12/12/20 10:45 74 16 94/57 L 95 12/12/20 10:35 77 16 101/64 95 12/12/20 10:32 75 16 95/56 L 95 12/12/20 10:31 77 16 99/58 L 95 12/12/20 10:16 36.4 C 79 16 118/63 94 L 12/12/20 09:12 36.4 C 85 18 134/66 94 L - Problem List (1) Hypertension SNOMED Code(s): 15499293 ICD Code: I10 - ESSENTIAL (PRIMARY) HYPERTENSION Status: Chronic Current Visit: Yes (2) Essential tremor SNOMED Code(s): 278029430 ICD Code: G25.0 - ESSENTIAL TREMOR Status: Chronic Current Visit: Yes (3) Palliative care encounter SNOMED Code(s): 018506811, 974072932 ICD Code: Z51.5 - ENCOUNTER FOR PALLIATIVE CARE Status: Acute Current Visit: Yes (4) Abrasion of both knees SNOMED Code(s): 108728284 ICD Code: S80.211A - ABRASION, RIGHT KNEE, INITIAL ENCOUNTER; S80.212A - ABRASION, LEFT KNEE, INITIAL ENCOUNTER Status: Acute Current Visit: Yes (5) Acute renal insufficiency SNOMED Code(s): 469695573 ICD Code: N28.9 - DISORDER OF KIDNEY AND URETER, UNSPECIFIED Status: Acute Current Visit: Yes (6) Elevated liver function tests SNOMED Code(s): 898139361 ICD Code: R79.89 - OTHER SPECIFIED ABNORMAL FINDINGS OF BLOOD CHEMISTRY Status: Acute Current Visit: Yes (7) Fall from bed SNOMED Code(s): 82848362 ICD Code: W06.XXXA - FALL FROM BED, INITIAL ENCOUNTER Status: Acute Current Visit: Yes (8) Ketonuria SNOMED Code(s): 341560105 ICD Code: R82.4 - ACETONURIA Status: Acute Current Visit: Yes (9) Moderate dehydration SNOMED Code(s): 0235879181133 ICD Code: E86.0 - DEHYDRATION Status: Acute Current Visit: Yes (10) NSTEMI (non-ST elevated myocardial infarction) SNOMED Code(s): 16317072 ICD Code: I21.4 - NON-ST ELEVATION (NSTEMI) MYOCARDIAL INFARCTION Status: Acute Current Visit: Yes (11) Pneumonia due to COVID-19 virus SNOMED Code(s): 176998448925859412 ICD Code: U07.1 - COVID-19; J12.82 - PNEUMONIA DUE TO CORONAVIRUS DISEASE 2019 Status: Acute Current Visit: Yes (12) Hematuria SNOMED Code(s): 16229720 ICD Code: R31.9 - HEMATURIA, UNSPECIFIED Status: Acute Current Visit: Yes Problem List Initiated/Reviewed/Updated: Yes Orders Last 24hrs: Active Orders 24 hr Category Date Time Status Admission Status [Patient Status] [ADT] Routine ADT 12/12/20 16:33 Active Patient Status [ADT] Routine ADT 12/12/20 18:12 Active Antiembolic Devices [RC] .Routine Care 12/12/20 18:12 Active EKG Documentation Completion [RC] ASDIRECTED Care 12/12/20 09:27 Active EKG Documentation Completion [RC] ASDIRECTED Care 12/12/20 13:11 Active Oxygen Therapy [RC] PRN Care 12/12/20 18:16 Active Oxygen Therapy, ED [RC] ASDIRECTED Care 12/12/20 13:12 Active Pulse Oximetry [RC] CONTINUOUS Care 12/12/20 18:17 Active VTE/DVT Education [RC] Click to Edit Care 12/12/20 18:12 Active Vaccine to be Administered/Admin Charge [RC] ASDIRECTED Care 12/12/20 18:16 Active Vital Signs [RC] Q15M Care 12/12/20 09:31 Active Vital Signs [RC] Q4H Care 12/12/20 18:12 Active Regular Diet [DIET] Diet 12/12/20 Breakfast Active BASIC METABOLIC PANEL,BMP [CHEM] AM Lab 12/13/20 05:11 Ordered CBC WITH AUTO DIFF [HEME] AM Lab 12/13/20 05:11 Ordered CREATINE KINASE,CK [CHEM] Routine Lab 12/12/20 17:00 Ordered D-DIMER QUANTITATIVE [COAG] Stat Lab 12/12/20 17:00 Ordered TROPONIN I [CHEM] Routine Lab 12/12/20 17:00 Ordered aPTT [PTT,PARTIAL THROMBOPLSTIN TIME] [COAG] Q6H Lab 12/13/20 01:00 Ordered aPTT [PTT,PARTIAL THROMBOPLSTIN TIME] [COAG] Q6H Lab 12/13/20 07:00 Ordered aPTT [PTT,PARTIAL THROMBOPLSTIN TIME] [COAG] Q6H Lab 12/13/20 13:00 Ordered aPTT [PTT,PARTIAL THROMBOPLSTIN TIME] [COAG] Q6H Lab 12/13/20 19:00 Ordered aPTT [PTT,PARTIAL THROMBOPLSTIN TIME] [COAG] Q6H Lab 12/14/20 01:00 Ordered Enoxaparin [Lovenox] Med 12/12/20 16:45 Active 100 mg SUBCUT Q12H Enoxaparin [Lovenox] Med 12/12/20 18:30 Ordered 100 mg SUBCUT Q12H FLU Vacc [id number](6MOS UP)/PF [Fluzone Quad [id number] Med 12/12/20 18:30 Once Syringe] 60 mcg IM .ONCE ONE Sodium Chloride 0.9% [Saline Flush] Med 12/12/20 09:45 Active 30 ml FLUSH ASDIRECTED DVT/VTE Prophylaxis Reflex [OM.PC] Per Unit Routine Oth 12/12/20 18:12 Ordered Resuscitation Status Routine Resus Stat 12/12/20 18:12 Ordered EKG 12 Lead [EK] Routine Ther 12/12/20 09:26 Ordered EKG 12 Lead [EK] Routine Ther 12/12/20 13:10 Ordered EKG 12 Lead [EK] Routine Ther 12/12/20 17:00 Ordered Medication Orders Enoxaparin Sodium (Enoxaparin 100 Mg/1 Ml Syringe) 100 mg SUBCUT Q12H [facility] Last Admin: 12/12/20 17:00 Dose: 100 mg Documented by: JAMES Enoxaparin Sodium (Enoxaparin 100 Mg/1 Ml Syringe) 100 mg SUBCUT Q12H [facility] Influenza Virus Vaccine (Flu Vacc [id number](6mos Up)/Pf 60 Mcg/0.5 Ml Syringe) 60 mcg IM .ONCE ONE Stop: 12/12/20 18:31 Sodium Chloride (Sodium Chloride 0.9% 10 Ml Syringe) 30 ml FLUSH ASDIRECTED [facility] Last Admin: 12/12/20 10:54 Dose: 30 ml Documented by: JAMES Assessment/Plan Comment:: 1. COVID-19 positive with Covid pneumonia: Continuous pulse oximetry with supplemental oxygen as needed to maintain oxygen saturation greater than 88% less than 95% 2. NSTEMI: Consultation with cardiology in [place] suggested enoxaparin 1 mg/kg for 24 hours followed by aspirin followed by follow-up outpatient referral with [facility] 3. Acute kidney injury, mild dehydration: Normal saline, trend labs 4. Skin abrasions: Routine skin care 5. Chronic medical problems including essential tremor and hypertension: Continue home propranolol 6. DVT prophylaxis: Enoxaparin 1 mg/kg as above for NSTEMI BID. We will continue enoxaparin at 40 mg/kg daily 7. GI prophylaxis: Omeprazole 20 mg every morning 8. Disposition: Pending clinical improvement, likely 3 to 4 days
[2020-12-12] MEDS ORDERED: Sodium Chloride 0.9% 1,000 ML IV SCH (18:45)
[2020-12-12] MEDS: Acetaminophen 325 MG Tab PO SCH (23:28)
[2020-12-12] MEDS: Dextrose 5%-0.45% NaCl 1,000 ML IV SCH (23:30)
[2020-12-13] MEDS: Acetaminophen 325 MG Tab PO SCH ×5 (05:26→22:19)
[2020-12-13] MEDS: Enoxaparin 100 MG/1 ML Syringe SUBCUT SCH (05:26)
[2020-12-13] MEDS: Dextrose 5%-0.45% NaCl 1,000 ML IV SCH (05:27)
[2020-12-13] MEDS ORDERED: Potassium Chloride 20 MEQ Tab.ER PO ONE (09:49)
[2020-12-13] MEDS: Sodium Chloride 0.9% 1,000 ML IV SCH ×3 (10:02→19:01)
--- NOTE | 2020-12-13 10:14 | PCM.PN ---
- General Info Date of Service: 12/13/20 Admission Dx/Problem (Free Text): Admission Diagnosis/Problem Admission Diagnosis/Problem Pneumonia Subjective Update: Patient states that he feels like he feels better today but is still very weak, he has no acute pain - Review of Systems General: Reports: Weakness HEENT: Reports: No Symptoms Pulmonary: Reports: No Symptoms Cardiovascular: Reports: No Symptoms Gastrointestinal: Reports: No Symptoms Genitourinary: Reports: No Symptoms Musculoskeletal: Reports: No Symptoms Skin: Reports: No Symptoms Neurological: Reports: No Symptoms Psychiatric: Reports: No Symptoms - Patient Data Vitals - Most Recent: Last Vital Signs Temp 36.8 C 12/13/20 05:30 Pulse 82 12/13/20 05:30 Resp 18 12/13/20 05:30 BP 123/68 12/13/20 05:30 Pulse Ox 95 12/13/20 05:30 Weight - Most Recent: 102.421 kg I&O - Last 24 Hours: Intake & Output 12/12/20 12/13/20 12/13/20 22:59 06:59 14:59 Intake Total 717 1000 Output Total 400 400 Balance 317 600 Lab Results Last 24 Hours: Laboratory Results - last 24 hr 12/12/20 12/12/20 12/12/20 Range/Units 09:50 09:50 09:50 WBC (3.2-10.1) x10-3/uL RBC (3.90-5.90) x10(6)uL Hgb (12.9-17.7) g/dL Hct (38.3-50.1) % MCV (80.8-98.7) fL MCH (27.0-33.3) pg MCHC (28.7-35.3) g/dL RDW (12.4-15.0) % Plt Count (117-477) x10(3)uL MPV (6.7-11.0) fL Neut % (Auto) (40.3-71.8) % Lymph % (Auto) (15.8-45.3) % [place] % (Auto) (5.5-15.2) % Eos % (Auto) (0.1-6.8) % Baso % (Auto) (0.3-3.8) % Neut # (Auto) (1.7-6.9) x10-3/uL Lymph # (Auto) (0.5-4.5) x10-3/uL [place] # (Auto) (0.0-1.2) x10-3/uL Eos # (Auto) (0.0-0.6) x10-3/uL Baso # (Auto) (0.0-0.3) x10-3/uL PT (9.0-11.1) sec INR (1.00-1.24) APTT (24.4-33.2) SECONDS D-Dimer, Quantitative (0.0-0.59) mg/LFEU Sodium 136 (135-145) mmol/L Potassium 4.6 (3.5-5.3) mmol/L Chloride 100 (100-110) mmol/L Carbon Dioxide 25 (21-32) mmol/L BUN 31 H (7-18) mg/dL Creatinine 1.6 H (0.70-1.30) mg/dL Est Cr Clr Drug Dosing TNP Estimated GFR (MDRD) 43 L (>60) BUN/Creatinine Ratio 19.4 (9-20) Glucose 97 (80-116) mg/dL Calcium 9.0 (8.6-10.2) mg/dL Total Bilirubin 0.9 (0.1-1.3) mg/dL AST 63 H (5-25) IU/L ALT 42 H (12-36) U/L Alkaline Phosphatase 89 (56-112) IU/L Creatine Kinase 1465 H* (60-160) IU/L Troponin I 124.4 H* (4.0-60.3) pg/mL C-Reactive Protein 5.5 H* (0.5-0.9) mg/dL Total Protein 7.1 (6.0-8.0) g/dL Albumin 3.6 (3.2-4.6) g/dL Globulin 3.5 g/dL Albumin/Globulin Ratio 1.0 TSH, Ultra Sensitive (0.36-3.74) IU/mL Urine Color (YELLOW) Urine Appearance (CLEAR) Urine pH (5.0-6.5) Ur Specific [place] (1.010-1.025) Urine Protein (NEGATIVE) mg/dL Urine Glucose (UA) (NORMAL) mg/dL Urine Ketones (NEGATIVE) mg/dL Urine Occult Blood (NEGATIVE) Urine Nitrite (NEGATIVE) Urine Bilirubin (NEGATIVE) Urine Urobilinogen (NEGATIVE) mg/dL Ur Leukocyte Esterase (NEGATIVE) Urine RBC (0-5) Urine WBC (0-5) Ur Squamous Epith Cells (NS,R,O) Urine Bacteria (NS) Coarse Granular Casts (NS) 12/12/20 12/12/20 12/12/20 Range/Units 09:50 09:50 12:00 WBC (3.2-10.1) x10-3/uL RBC (3.90-5.90) x10(6)uL Hgb (12.9-17.7) g/dL Hct (38.3-50.1) % MCV (80.8-98.7) fL MCH (27.0-33.3) pg MCHC (28.7-35.3) g/dL RDW (12.4-15.0) % Plt Count (117-477) x10(3)uL MPV (6.7-11.0) fL Neut % (Auto) (40.3-71.8) % Lymph % (Auto) (15.8-45.3) % [place] % (Auto) (5.5-15.2) % Eos % (Auto) (0.1-6.8) % Baso % (Auto) (0.3-3.8) % Neut # (Auto) (1.7-6.9) x10-3/uL Lymph # (Auto) (0.5-4.5) x10-3/uL [place] # (Auto) (0.0-1.2) x10-3/uL Eos # (Auto) (0.0-0.6) x10-3/uL Baso # (Auto) (0.0-0.3) x10-3/uL PT 10.7 (9.0-11.1) sec INR 0.99 L (1.00-1.24) APTT 30.4 (24.4-33.2) SECONDS D-Dimer, Quantitative (0.0-0.59) mg/LFEU Sodium (135-145) mmol/L Potassium (3.5-5.3) mmol/L Chloride (100-110) mmol/L Carbon Dioxide (21-32) mmol/L BUN (7-18) mg/dL Creatinine (0.70-1.30) mg/dL Est Cr Clr Drug Dosing Estimated GFR (MDRD) (>60) BUN/Creatinine Ratio (9-20) Glucose (80-116) mg/dL Calcium (8.6-10.2) mg/dL Total Bilirubin (0.1-1.3) mg/dL AST (5-25) IU/L ALT (12-36) U/L Alkaline Phosphatase (56-112) IU/L Creatine Kinase (60-160) IU/L Troponin I 387.1 H* (4.0-60.3) pg/mL C-Reactive Protein (0.5-0.9) mg/dL Total Protein (6.0-8.0) g/dL Albumin (3.2-4.6) g/dL Globulin g/dL Albumin/Globulin Ratio TSH, Ultra Sensitive 2.06 (0.36-3.74) IU/mL Urine Color (YELLOW) Urine Appearance (CLEAR) Urine pH (5.0-6.5) Ur Specific [place] (1.010-1.025) Urine Protein (NEGATIVE) mg/dL Urine Glucose (UA) (NORMAL) mg/dL Urine Ketones (NEGATIVE) mg/dL Urine Occult Blood (NEGATIVE) Urine Nitrite (NEGATIVE) Urine Bilirubin (NEGATIVE) Urine Urobilinogen (NEGATIVE) mg/dL Ur Leukocyte Esterase (NEGATIVE) Urine RBC (0-5) Urine WBC (0-5) Ur Squamous Epith Cells (NS,R,O) Urine Bacteria (NS) Coarse Granular Casts (NS) 12/12/20 12/12/20 12/12/20 Range/Units 14:00 17:22 17:22 WBC (3.2-10.1) x10-3/uL RBC (3.90-5.90) x10(6)uL Hgb (12.9-17.7) g/dL Hct (38.3-50.1) % MCV (80.8-98.7) fL MCH (27.0-33.3) pg MCHC (28.7-35.3) g/dL RDW (12.4-15.0) % Plt Count (117-477) x10(3)uL MPV (6.7-11.0) fL Neut % (Auto) (40.3-71.8) % Lymph % (Auto) (15.8-45.3) % [place] % (Auto) (5.5-15.2) % Eos % (Auto) (0.1-6.8) % Baso % (Auto) (0.3-3.8) % Neut # (Auto) (1.7-6.9) x10-3/uL Lymph # (Auto) (0.5-4.5) x10-3/uL [place] # (Auto) (0.0-1.2) x10-3/uL Eos # (Auto) (0.0-0.6) x10-3/uL Baso # (Auto) (0.0-0.3) x10-3/uL PT (9.0-11.1) sec INR (1.00-1.24) APTT (24.4-33.2) SECONDS D-Dimer, Quantitative (0.0-0.59) mg/LFEU Sodium (135-145) mmol/L Potassium (3.5-5.3) mmol/L Chloride (100-110) mmol/L Carbon Dioxide (21-32) mmol/L BUN (7-18) mg/dL Creatinine (0.70-1.30) mg/dL Est Cr Clr Drug Dosing Estimated GFR (MDRD) (>60) BUN/Creatinine Ratio (9-20) Glucose (80-116) mg/dL Calcium (8.6-10.2) mg/dL Total Bilirubin (0.1-1.3) mg/dL AST (5-25) IU/L ALT (12-36) U/L Alkaline Phosphatase (56-112) IU/L Creatine Kinase 3354 H* (60-160) IU/L Troponin I 922.4 H* (4.0-60.3) pg/mL C-Reactive Protein (0.5-0.9) mg/dL Total Protein (6.0-8.0) g/dL Albumin (3.2-4.6) g/dL Globulin g/dL Albumin/Globulin Ratio TSH, Ultra Sensitive (0.36-3.74) IU/mL Urine Color Yellow (YELLOW) Urine Appearance Slightly cloudy (CLEAR) Urine pH 5.0 (5.0-6.5) Ur Specific [place] 1.030 H (1.010-1.025) Urine Protein 500 H (NEGATIVE) mg/dL Urine Glucose (UA) Normal (NORMAL) mg/dL Urine Ketones 50 H (NEGATIVE) mg/dL Urine Occult Blood Large H (NEGATIVE) Urine Nitrite Negative (NEGATIVE) Urine Bilirubin Negative (NEGATIVE) Urine Urobilinogen Normal (NEGATIVE) mg/dL Ur Leukocyte Esterase Negative (NEGATIVE) Urine RBC 0-5 (0-5) Urine WBC 0-5 (0-5) Ur Squamous Epith Cells Occasional (NS,R,O) Urine Bacteria Few H (NS) Coarse Granular Casts Few H (NS) 12/12/20 12/13/20 12/13/20 Range/Units 17:22 01:10 06:18 WBC 4.4 (3.2-10.1) x10-3/uL RBC 4.70 (3.90-5.90) x10(6)uL Hgb 14.6 (12.9-17.7) g/dL Hct 44.2 (38.3-50.1) % MCV 93.9 (80.8-98.7) fL MCH 30.9 (27.0-33.3) pg MCHC 32.9 (28.7-35.3) g/dL RDW 13.6 (12.4-15.0) % Plt Count 95 L (117-477) x10(3)uL MPV 7.8 (6.7-11.0) fL Neut % (Auto) 73.1 H (40.3-71.8) % Lymph % (Auto) 20.9 (15.8-45.3) % [place] % (Auto) 5.4 L (5.5-15.2) % Eos % (Auto) 0.1 (0.1-6.8) % Baso % (Auto) 0.5 (0.3-3.8) % Neut # (Auto) 3.2 (1.7-6.9) x10-3/uL Lymph # (Auto) 0.9 (0.5-4.5) x10-3/uL [place] # (Auto) 0.2 (0.0-1.2) x10-3/uL Eos # (Auto) 0.0 (0.0-0.6) x10-3/uL Baso # (Auto) 0.0 (0.0-0.3) x10-3/uL PT (9.0-11.1) sec INR (1.00-1.24) APTT 42.7 H (24.4-33.2) SECONDS D-Dimer, Quantitative 1.51 H (0.0-0.59) mg/LFEU Sodium (135-145) mmol/L Potassium (3.5-5.3) mmol/L Chloride (100-110) mmol/L Carbon Dioxide (21-32) mmol/L BUN (7-18) mg/dL Creatinine (0.70-1.30) mg/dL Est Cr Clr Drug Dosing Estimated GFR (MDRD) (>60) BUN/Creatinine Ratio (9-20) Glucose (80-116) mg/dL Calcium (8.6-10.2) mg/dL Total Bilirubin (0.1-1.3) mg/dL AST (5-25) IU/L ALT (12-36) U/L Alkaline Phosphatase (56-112) IU/L Creatine Kinase (60-160) IU/L Troponin I (4.0-60.3) pg/mL C-Reactive Protein (0.5-0.9) mg/dL Total Protein (6.0-8.0) g/dL Albumin (3.2-4.6) g/dL Globulin g/dL Albumin/Globulin Ratio TSH, Ultra Sensitive (0.36-3.74) IU/mL Urine Color (YELLOW) Urine Appearance (CLEAR) Urine pH (5.0-6.5) Ur Specific [place] (1.010-1.025) Urine Protein (NEGATIVE) mg/dL Urine Glucose (UA) (NORMAL) mg/dL Urine Ketones (NEGATIVE) mg/dL Urine Occult Blood (NEGATIVE) Urine Nitrite (NEGATIVE) Urine Bilirubin (NEGATIVE) Urine Urobilinogen (NEGATIVE) mg/dL Ur Leukocyte Esterase (NEGATIVE) Urine RBC (0-5) Urine WBC (0-5) Ur Squamous Epith Cells (NS,R,O) Urine Bacteria (NS) Coarse Granular Casts (NS) 12/13/20 12/13/20 Range/Units 06:18 06:18 WBC (3.2-10.1) x10-3/uL RBC (3.90-5.90) x10(6)uL Hgb (12.9-17.7) g/dL Hct (38.3-50.1) % MCV (80.8-98.7) fL MCH (27.0-33.3) pg MCHC (28.7-35.3) g/dL RDW (12.4-15.0) % Plt Count (117-477) x10(3)uL MPV (6.7-11.0) fL Neut % (Auto) (40.3-71.8) % Lymph % (Auto) (15.8-45.3) % [place] % (Auto) (5.5-15.2) % Eos % (Auto) (0.1-6.8) % Baso % (Auto) (0.3-3.8) % Neut # (Auto) (1.7-6.9) x10-3/uL Lymph # (Auto) (0.5-4.5) x10-3/uL [place] # (Auto) (0.0-1.2) x10-3/uL Eos # (Auto) (0.0-0.6) x10-3/uL Baso # (Auto) (0.0-0.3) x10-3/uL PT (9.0-11.1) sec INR (1.00-1.24) APTT (24.4-33.2) SECONDS D-Dimer, Quantitative (0.0-0.59) mg/LFEU Sodium 138 (135-145) mmol/L Potassium 3.4 L D (3.5-5.3) mmol/L Chloride 105 D (100-110) mmol/L Carbon Dioxide 21 (21-32) mmol/L BUN 20 H D (7-18) mg/dL Creatinine 1.2 (0.70-1.30) mg/dL Est Cr Clr Drug Dosing 57.28 Estimated GFR (MDRD) 60 (>60) BUN/Creatinine Ratio 16.7 (9-20) Glucose 138 H (80-116) mg/dL Calcium 7.4 L (8.6-10.2) mg/dL Total Bilirubin (0.1-1.3) mg/dL AST (5-25) IU/L ALT (12-36) U/L Alkaline Phosphatase (56-112) IU/L Creatine Kinase (60-160) IU/L Troponin I 707.2 H* (4.0-60.3) pg/mL C-Reactive Protein (0.5-0.9) mg/dL Total Protein (6.0-8.0) g/dL Albumin (3.2-4.6) g/dL Globulin g/dL Albumin/Globulin Ratio TSH, Ultra Sensitive (0.36-3.74) IU/mL Urine Color (YELLOW) Urine Appearance (CLEAR) Urine pH (5.0-6.5) Ur Specific [place] (1.010-1.025) Urine Protein (NEGATIVE) mg/dL Urine Glucose (UA) (NORMAL) mg/dL Urine Ketones (NEGATIVE) mg/dL Urine Occult Blood (NEGATIVE) Urine Nitrite (NEGATIVE) Urine Bilirubin (NEGATIVE) Urine Urobilinogen (NEGATIVE) mg/dL Ur Leukocyte Esterase (NEGATIVE) Urine RBC (0-5) Urine WBC (0-5) Ur Squamous Epith Cells (NS,R,O) Urine Bacteria (NS) Coarse Granular Casts (NS) Med Orders - Current: Current Medications Acetaminophen (Acetaminophen 325 Mg Tab) 650 mg PO Q6H [facility] Last Admin: 12/13/20 05:26 Dose: 650 mg Documented by: Enoxaparin Sodium (Enoxaparin 60 Mg/0.6 Ml Syringe) 50 mg SUBCUT Q12H [facility] Sodium Chloride (Normal Saline) 1,000 mls @ 75 mls/hr IV ASDIRECTED [facility] Last Admin: 12/13/20 10:02 Dose: 75 mls/hr Documented by: Sodium Chloride (Sodium Chloride 0.9% 10 Ml Syringe) 30 ml FLUSH ASDIRECTED [facility] Last Admin: 12/12/20 10:54 Dose: 30 ml Documented by: Discontinued Medications Aspirin (Aspirin 81 Mg Tab.Chew) 324 mg PO ONETIME ONE Stop: 12/12/20 13:10 Last Admin: 12/12/20 13:37 Dose: 324 mg Documented by: Enoxaparin Sodium (Enoxaparin 100 Mg/1 Ml Syringe) 100 mg SUBCUT Q12H [facility] Last Admin: 12/13/20 05:26 Dose: 100 mg Documented by: Enoxaparin Sodium (Enoxaparin 100 Mg/1 Ml Syringe) 100 mg SUBCUT Q12H [facility] Last Admin: 12/12/20 21:18 Dose: Not Given Documented by: Heparin Sodium (Porcine) (Heparin Sodium 5,000 Units/Ml Vial) 5,000 units IVPUSH ONETIME ONE Stop: 12/12/20 13:14 Last Admin: 12/12/20 13:37 Dose: 5,000 units Documented by: Sodium Chloride (Normal Saline) 1,000 mls @ 999 mls/hr IV .BOLUS ONE Stop: 12/12/20 10:26 Last Admin: 12/12/20 09:40 Dose: 999 mls/hr Documented by: Bamlanivimab 700 mg/Etesevimab 1,400 mg/ Sodium Chloride 160 mls @ 310 mls/hr IV ONETIME ONE Stop: 12/12/20 10:30 Last Admin: 12/12/20 10:08 Dose: 310 mls/hr Documented by: Heparin Sodium/Sodium Chloride (Heparin 25,000 Units In 1/2 Ns 500 Ml) 25,000 units in 500 mls @ 19.998 mls/hr IV TITRATE [facility]; Protocol Last Admin: 12/12/20 13:38 Dose: 10.02 units/kg/hr, 19.998 mls/hr Documented by: Sodium Chloride (Normal Saline) 1,000 mls @ 999 mls/hr IV .BOLUS ONE Stop: 12/12/20 14:40 Last Admin: 12/12/20 13:40 Dose: 999 mls/hr Documented by: Sodium Chloride (Normal Saline) 1,000 mls @ 999 mls/hr IV .BOLUS ONE Stop: 12/12/20 16:34 Last Admin: 12/12/20 15:40 Dose: 999 mls/hr Documented by: Sodium Chloride (Normal Saline) 1,000 mls @ 75 mls/hr IV ASDIRECTED [facility] Last Admin: 12/12/20 20:00 Dose: 75 mls/hr Documented by: Dextrose/Sodium Chloride (Dextrose 5%-1/2 Ns) 1,000 mls @ 200 mls/hr IV ASDIR ECTED [facility] Last Admin: 12/13/20 05:27 Dose: 200 mls/hr Documented by: Influenza Virus Vaccine (Pharmacy To Dose - Influenza Vaccine) 1 each IM ONETIME ONE Stop: 12/12/20 18:15 Influenza Virus Vaccine (Flu Vacc Mo2201-45(6mos Up)/Pf 60 Mcg/0.5 Ml Syringe) 60 mcg IM .ONCE ONE Stop: 12/12/20 18:31 Potassium Chloride (Potassium Chloride 20 Meq Tab.Er) 40 meq PO ONETIME ONE Stop: 12/13/20 09:50 Ticagrelor (Ticagrelor 90 Mg Tab) 180 mg PO ONETIME ONE Stop: 12/12/20 13:10 Last Admin: 12/12/20 13:37 Dose: 180 mg Documented by: Comments:: Patient was sitting up in bed preparing to eat breakfast. He stated that he was hungry and was willing to eat. Patient appears fatigued - Exam Quality Assessment: Supplemental Oxygen, DVT Prophylaxis General: Alert, Oriented, Cooperative, No Acute Distress HEENT: EOMI Neck: Supple Lungs: Other (Slightly diminished airflow with crackles in the left lower lobe, significantly diminished airflow in the right lower lobe) Cardiovascular: Regular Rate, Regular Rhythm, No Murmurs GI/Abdominal Exam: Normal Bowel Sounds, Soft, Non-Tender Back Exam: Normal Inspection Extremities: Normal Inspection, No Pedal Edema Peripheral Pulses: 2+: Radial (L), Radial (R), Dorsalis Pedis (L), Dorsalis Pedis (R) Skin: Warm, Dry Neurological: No New Focal Deficit Psy/Mental Status: Alert, Normal Mood, Depressed - Patient Data Lab Results Last 24 hrs: Laboratory Results - last 24 hr 12/12/20 12/12/20 12/12/20 Range/Units 09:50 09:50 09:50 WBC (3.2-10.1) x10-3/uL RBC (3.90-5.90) x10(6)uL Hgb (12.9-17.7) g/dL Hct (38.3-50.1) % MCV (80.8-98.7) fL MCH (27.0-33.3) pg MCHC (28.7-35.3) g/dL RDW (12.4-15.0) % Plt Count (117-477) x10(3)uL MPV (6.7-11.0) fL Neut % (Auto) (40.3-71.8) % Lymph % (Auto) (15.8-45.3) % [place] % (Auto) (5.5-15.2) % Eos % (Auto) (0.1-6.8) % Baso % (Auto) (0.3-3.8) % Neut # (Auto) (1.7-6.9) x10-3/uL Lymph # (Auto) (0.5-4.5) x10-3/uL [place] # (Auto) (0.0-1.2) x10-3/uL Eos # (Auto) (0.0-0.6) x10-3/uL Baso # (Auto) (0.0-0.3) x10-3/uL PT (9.0-11.1) sec INR (1.00-1.24) APTT (24.4-33.2) SECONDS D-Dimer, Quantitative (0.0-0.59) mg/LFEU Sodium 136 (135-145) mmol/L Potassium 4.6 (3.5-5.3) mmol/L Chloride 100 (100-110) mmol/L Carbon Dioxide 25 (21-32) mmol/L BUN 31 H (7-18) mg/dL Creatinine 1.6 H (0.70-1.30) mg/dL Est Cr Clr Drug Dosing TNP Estimated GFR (MDRD) 43 L (>60) BUN/Creatinine Ratio 19.4 (9-20) Glucose 97 (80-116) mg/dL Calcium 9.0 (8.6-10.2) mg/dL Total Bilirubin 0.9 (0.1-1.3) mg/dL AST 63 H (5-25) IU/L ALT 42 H (12-36) U/L Alkaline Phosphatase 89 (56-112) IU/L Creatine Kinase 1465 H* (60-160) IU/L Troponin I 124.4 H* (4.0-60.3) pg/mL C-Reactive Protein 5.5 H* (0.5-0.9) mg/dL Total Protein 7.1 (6.0-8.0) g/dL Albumin 3.6 (3.2-4.6) g/dL Globulin 3.5 g/dL Albumin/Globulin Ratio 1.0 TSH, Ultra Sensitive (0.36-3.74) IU/mL Urine Color (YELLOW) Urine Appearance (CLEAR) Urine pH (5.0-6.5) Ur Specific [place] (1.010-1.025) Urine Protein (NEGATIVE) mg/dL Urine Glucose (UA) (NORMAL) mg/dL Urine Ketones (NEGATIVE) mg/dL Urine Occult Blood (NEGATIVE) Urine Nitrite (NEGATIVE) Urine Bilirubin (NEGATIVE) Urine Urobilinogen (NEGATIVE) mg/dL Ur Leukocyte Esterase (NEGATIVE) Urine RBC (0-5) Urine WBC (0-5) Ur Squamous Epith Cells (NS,R,O) Urine Bacteria (NS) Coarse Granular Casts (NS) 12/12/20 12/12/20 12/12/20 Range/Units 09:50 09:50 12:00 WBC (3.2-10.1) x10-3/uL RBC (3.90-5.90) x10(6)uL Hgb (12.9-17.7) g/dL Hct (38.3-50.1) % MCV (80.8-98.7) fL MCH (27.0-33.3) pg MCHC (28.7-35.3) g/dL RDW (12.4-15.0) % Plt Count (117-477) x10(3)uL MPV (6.7-11.0) fL Neut % (Auto) (40.3-71.8) % Lymph % (Auto) (15.8-45.3) % [place] % (Auto) (5.5-15.2) % Eos % (Auto) (0.1-6.8) % Baso % (Auto) (0.3-3.8) % Neut # (Auto) (1.7-6.9) x10-3/uL Lymph # (Auto) (0.5-4.5) x10-3/uL [place] # (Auto) (0.0-1.2) x10-3/uL Eos # (Auto) (0.0-0.6) x10-3/uL Baso # (Auto) (0.0-0.3) x10-3/uL PT 10.7 (9.0-11.1) sec INR 0.99 L (1.00-1.24) APTT 30.4 (24.4-33.2) SECONDS D-Dimer, Quantitative (0.0-0.59) mg/LFEU Sodium (135-145) mmol/L Potassium (3.5-5.3) mmol/L Chloride (100-110) mmol/L Carbon Dioxide (21-32) mmol/L BUN (7-18) mg/dL Creatinine (0.70-1.30) mg/dL Est Cr Clr Drug Dosing Estimated GFR (MDRD) (>60) BUN/Creatinine Ratio (9-20) Glucose (80-116) mg/dL Calcium (8.6-10.2) mg/dL Total Bilirubin (0.1-1.3) mg/dL AST (5-25) IU/L ALT (12-36) U/L Alkaline Phosphatase (56-112) IU/L Creatine Kinase (60-160) IU/L Troponin I 387.1 H* (4.0-60.3) pg/mL C-Reactive Protein (0.5-0.9) mg/dL Total Protein (6.0-8.0) g/dL Albumin (3.2-4.6) g/dL Globulin g/dL Albumin/Globulin Ratio TSH, Ultra Sensitive 2.06 (0.36-3.74) IU/mL Urine Color (YELLOW) Urine Appearance (CLEAR) Urine pH (5.0-6.5) Ur Specific [place] (1.010-1.025) Urine Protein (NEGATIVE) mg/dL Urine Glucose (UA) (NORMAL) mg/dL Urine Ketones (NEGATIVE) mg/dL Urine Occult Blood (NEGATIVE) Urine Nitrite (NEGATIVE) Urine Bilirubin (NEGATIVE) Urine Urobilinogen (NEGATIVE) mg/dL Ur Leukocyte Esterase (NEGATIVE) Urine RBC (0-5) Urine WBC (0-5) Ur Squamous Epith Cells (NS,R,O) Urine Bacteria (NS) Coarse Granular Casts (NS) 12/12/20 12/12/20 12/12/20 Range/Units 14:00 17:22 17:22 WBC (3.2-10.1) x10-3/uL RBC (3.90-5.90) x10(6)uL Hgb (12.9-17.7) g/dL Hct (38.3-50.1) % MCV (80.8-98.7) fL MCH (27.0-33.3) pg MCHC (28.7-35.3) g/dL RDW (12.4-15.0) % Plt Count (117-477) x10(3)uL MPV (6.7-11.0) fL Neut % (Auto) (40.3-71.8) % Lymph % (Auto) (15.8-45.3) % [place] % (Auto) (5.5-15.2) % Eos % (Auto) (0.1-6.8) % Baso % (Auto) (0.3-3.8) % Neut # (Auto) (1.7-6.9) x10-3/uL Lymph # (Auto) (0.5-4.5) x10-3/uL [place] # (Auto) (0.0-1.2) x10-3/uL Eos # (Auto) (0.0-0.6) x10-3/uL Baso # (Auto) (0.0-0.3) x10-3/uL PT (9.0-11.1) sec INR (1.00-1.24) APTT (24.4-33.2) SECONDS D-Dimer, Quantitative (0.0-0.59) mg/LFEU Sodium (135-145) mmol/L Potassium (3.5-5.3) mmol/L Chloride (100-110) mmol/L Carbon Dioxide (21-32) mmol/L BUN (7-18) mg/dL Creatinine (0.70-1.30) mg/dL Est Cr Clr Drug Dosing Estimated GFR (MDRD) (>60) BUN/Creatinine Ratio (9-20) Glucose (80-116) mg/dL Calcium (8.6-10.2) mg/dL Total Bilirubin (0.1-1.3) mg/dL AST (5-25) IU/L ALT (12-36) U/L Alkaline Phosphatase (56-112) IU/L Creatine Kinase 3354 H* (60-160) IU/L Troponin I 922.4 H* (4.0-60.3) pg/mL C-Reactive Protein (0.5-0.9) mg/dL Total Protein (6.0-8.0) g/dL Albumin (3.2-4.6) g/dL Globulin g/dL Albumin/Globulin Ratio TSH, Ultra Sensitive (0.36-3.74) IU/mL Urine Color Yellow (YELLOW) Urine Appearance Slightly cloudy (CLEAR) Urine pH 5.0 (5.0-6.5) Ur Specific [place] 1.030 H (1.010-1.025) Urine Protein 500 H (NEGATIVE) mg/dL Urine Glucose (UA) Normal (NORMAL) mg/dL Urine Ketones 50 H (NEGATIVE) mg/dL Urine Occult Blood Large H (NEGATIVE) Urine Nitrite Negative (NEGATIVE) Urine Bilirubin Negative (NEGATIVE) Urine Urobilinogen Normal (NEGATIVE) mg/dL Ur Leukocyte Esterase Negative (NEGATIVE) Urine RBC 0-5 (0-5) Urine WBC 0-5 (0-5) Ur Squamous Epith Cells Occasional (NS,R,O) Urine Bacteria Few H (NS) Coarse Granular Casts Few H (NS) 12/12/20 12/13/20 12/13/20 Range/Units 17:22 01:10 06:18 WBC 4.4 (3.2-10.1) x10-3/uL RBC 4.70 (3.90-5.90) x10(6)uL Hgb 14.6 (12.9-17.7) g/dL Hct 44.2 (38.3-50.1) % MCV 93.9 (80.8-98.7) fL MCH 30.9 (27.0-33.3) pg MCHC 32.9 (28.7-35.3) g/dL RDW 13.6 (12.4-15.0) % Plt Count 95 L (117-477) x10(3)uL MPV 7.8 (6.7-11.0) fL Neut % (Auto) 73.1 H (40.3-71.8) % Lymph % (Auto) 20.9 (15.8-45.3) % [place] % (Auto) 5.4 L (5.5-15.2) % Eos % (Auto) 0.1 (0.1-6.8) % Baso % (Auto) 0.5 (0.3-3.8) % Neut # (Auto) 3.2 (1.7-6.9) x10-3/uL Lymph # (Auto) 0.9 (0.5-4.5) x10-3/uL [place] # (Auto) 0.2 (0.0-1.2) x10-3/uL Eos # (Auto) 0.0 (0.0-0.6) x10-3/uL Baso # (Auto) 0.0 (0.0-0.3) x10-3/uL PT (9.0-11.1) sec INR (1.00-1.24) APTT 42.7 H (24.4-33.2) SECONDS D-Dimer, Quantitative 1.51 H (0.0-0.59) mg/LFEU Sodium (135-145) mmol/L Potassium (3.5-5.3) mmol/L Chloride (100-110) mmol/L Carbon Dioxide (21-32) mmol/L BUN (7-18) mg/dL Creatinine (0.70-1.30) mg/dL Est Cr Clr Drug Dosing Estimated GFR (MDRD) (>60) BUN/Creatinine Ratio (9-20) Glucose (80-116) mg/dL Calcium (8.6-10.2) mg/dL Total Bilirubin (0.1-1.3) mg/dL AST (5-25) IU/L ALT (12-36) U/L Alkaline Phosphatase (56-112) IU/L Creatine Kinase (60-160) IU/L Troponin I (4.0-60.3) pg/mL C-Reactive Protein (0.5-0.9) mg/dL Total Protein (6.0-8.0) g/dL Albumin (3.2-4.6) g/dL Globulin g/dL Albumin/Globulin Ratio TSH, Ultra Sensitive (0.36-3.74) IU/mL Urine Color (YELLOW) Urine Appearance (CLEAR) Urine pH (5.0-6.5) Ur Specific [place] (1.010-1.025) Urine Protein (NEGATIVE) mg/dL Urine Glucose (UA) (NORMAL) mg/dL Urine Ketones (NEGATIVE) mg/dL Urine Occult Blood (NEGATIVE) Urine Nitrite (NEGATIVE) Urine Bilirubin (NEGATIVE) Urine Urobilinogen (NEGATIVE) mg/dL Ur Leukocyte Esterase (NEGATIVE) Urine RBC (0-5) Urine WBC (0-5) Ur Squamous Epith Cells (NS,R,O) Urine Bacteria (NS) Coarse Granular Casts (NS) 12/13/20 12/13/20 Range/Units 06:18 06:18 WBC (3.2-10.1) x10-3/uL RBC (3.90-5.90) x10(6)uL Hgb (12.9-17.7) g/dL Hct (38.3-50.1) % MCV (80.8-98.7) fL MCH (27.0-33.3) pg MCHC (28.7-35.3) g/dL RDW (12.4-15.0) % Plt Count (117-477) x10(3)uL MPV (6.7-11.0) fL Neut % (Auto) (40.3-71.8) % Lymph % (Auto) (15.8-45.3) % [place] % (Auto) (5.5-15.2) % Eos % (Auto) (0.1-6.8) % Baso % (Auto) (0.3-3.8) % Neut # (Auto) (1.7-6.9) x10-3/uL Lymph # (Auto) (0.5-4.5) x10-3/uL [place] # (Auto) (0.0-1.2) x10-3/uL Eos # (Auto) (0.0-0.6) x10-3/uL Baso # (Auto) (0.0-0.3) x10-3/uL PT (9.0-11.1) sec INR (1.00-1.24) APTT (24.4-33.2) SECONDS D-Dimer, Quantitative (0.0-0.59) mg/LFEU Sodium 138 (135-145) mmol/L Potassium 3.4 L D (3.5-5.3) mmol/L Chloride 105 D (100-110) mmol/L Carbon Dioxide 21 (21-32) mmol/L BUN 20 H D (7-18) mg/dL Creatinine 1.2 (0.70-1.30) mg/dL Est Cr Clr Drug Dosing 57.28 Estimated GFR (MDRD) 60 (>60) BUN/Creatinine Ratio 16.7 (9-20) Glucose 138 H (80-116) mg/dL Calcium 7.4 L (8.6-10.2) mg/dL Total Bilirubin (0.1-1.3) mg/dL AST (5-25) IU/L ALT (12-36) U/L Alkaline Phosphatase (56-112) IU/L Creatine Kinase (60-160) IU/L Troponin I 707.2 H* (4.0-60.3) pg/mL C-Reactive Protein (0.5-0.9) mg/dL Total Protein (6.0-8.0) g/dL Albumin (3.2-4.6) g/dL Globulin g/dL Albumin/Globulin Ratio TSH, Ultra Sensitive (0.36-3.74) IU/mL Urine Color (YELLOW) Urine Appearance (CLEAR) Urine pH (5.0-6.5) Ur Specific [place] (1.010-1.025) Urine Protein (NEGATIVE) mg/dL Urine Glucose (UA) (NORMAL) mg/dL Urine Ketones (NEGATIVE) mg/dL Urine Occult Blood (NEGATIVE) Urine Nitrite (NEGATIVE) Urine Bilirubin (NEGATIVE) Urine Urobilinogen (NEGATIVE) mg/dL Ur Leukocyte Esterase (NEGATIVE) Urine RBC (0-5) Urine WBC (0-5) Ur Squamous Epith Cells (NS,R,O) Urine Bacteria (NS) Coarse Granular Casts (NS) Result Diagrams: 12/13/20 06:18 12/13/20 06:18 Sepsis Event Note - Evaluation Sepsis Screening Result: No Definite Risk - Focused Exam Vital Signs: Vital Signs Temp Temp Pulse Resp BP Pulse Ox Pulse Ox 12/13/20 05:30 36.8 C 82 18 123/68 95 12/13/20 00:00 37.1 C 37.1 C 84 16 114/61 93 L 94 L 12/12/20 23:28 38.9 C H 12/12/20 23:00 38.9 C H 93 L - Problem List & Annotations (1) Hypertension SNOMED Code(s): 02030865 Code(s): I10 - ESSENTIAL (PRIMARY) HYPERTENSION Status: Chronic Current Visit: Yes (2) Essential tremor SNOMED Code(s): 973319794 Code(s): G25.0 - ESSENTIAL TREMOR Status: Chronic Current Visit: Yes (3) Palliative care encounter SNOMED Code(s): 956927605, 724520323 Code(s): Z51.5 - ENCOUNTER FOR PALLIATIVE CARE Status: Acute Current Visit: Yes (4) Abrasion of both knees SNOMED Code(s): 243797525 Code(s): S80.211A - ABRASION, RIGHT KNEE, INITIAL ENCOUNTER; S80.212A - ABRASION, LEFT KNEE, INITIAL ENCOUNTER Status: Acute Current Visit: Yes (5) Acute renal insufficiency SNOMED Code(s): [id number] Code(s): N28.9 - DISORDER OF KIDNEY AND URETER, UNSPECIFIED Status: Acute Current Visit: Yes (6) Elevated liver function tests SNOMED Code(s): 115612583 Code(s): R79.89 - OTHER SPECIFIED ABNORMAL FINDINGS OF BLOOD CHEMISTRY Status: Acute Current Visit: Yes (7) Fall from bed SNOMED Code(s): 95426044 Code(s): W06.XXXA - FALL FROM BED, INITIAL ENCOUNTER Status: Acute Current Visit: Yes (8) Ketonuria SNOMED Code(s): 892427889 Code(s): R82.4 - ACETONURIA Status: Acute Current Visit: Yes (9) Moderate dehydration SNOMED Code(s): 9848509557348 Code(s): E86.0 - DEHYDRATION Status: Acute Current Visit: Yes (10) NSTEMI (non-ST elevated myocardial infarction) SNOMED Code(s): 27897684 Code(s): I21.4 - NON-ST ELEVATION (NSTEMI) MYOCARDIAL INFARCTION Status: Acute Current Visit: Yes (11) Pneumonia due to COVID-19 virus SNOMED Code(s): 036659762706190329 Code(s): U07.1 - COVID-19; J12.82 - PNEUMONIA DUE TO CORONAVIRUS DISEASE 2019 Status: Acute Current Visit: Yes (12) Hematuria SNOMED Code(s): 02738917 Code(s): R31.9 - HEMATURIA, UNSPECIFIED Status: Acute Current Visit: Yes - Problem List Review Problem List Initiated/Reviewed/Updated: Yes - My Orders Last 24 Hours: My Active Orders 12/12/20 18:12 Patient Status [ADT] Routine Antiembolic Devices [RC] .Routine VTE/DVT Education [RC] Click to Edit DVT/VTE Prophylaxis Reflex [OM.PC] Per Unit Routine Resuscitation Status Routine 12/12/20 18:16 Oxygen Therapy [RC] PRN Vaccine to be Administered/Admin Charge [RC] ASDIRECTED 12/12/20 18:17 Pulse Oximetry [RC] CONTINUOUS 12/12/20 18:43 Patient Status [ADT] Routine Pulse Oximetry [RC] PRN Vital Signs [RC] Q4H DVT/VTE Prophylaxis Reflex [OM.PC] Per Unit Routine 12/12/20 18:44 Antiembolic Devices [RC] .Routine VTE/DVT Education [RC] Click to Edit 12/13/20 09:56 PROCALCITONIN Urgent 12/13/20 10:00 Sodium Chloride 0.9% @ 75 MLS/HR(1000ml) Sodium Chloride 0.9% [Normal Saline] 1 ,000 ml IV ASDIRECTED 12/13/20 16:00 CBC WITH AUTO DIFF [HEME] Routine 12/13/20 18:00 Enoxaparin [Lovenox] 50 mg SUBCUT Q12H - Plan Plan:: 1. COVID-19 positive with Covid pneumonia: Continuous pulse oximetry with supplemental oxygen. Overnight patient required 6 L/min, this morning patient is down to 2 L/min and 95%. 2. NSTEMI: Consultation with cardiology in [place] suggested enoxaparin 1 mg/kg for 24 hours. Patient had some nosebleed overnight. Consultation with hospitalist in the [facility] in [place] recommended continuing Lovenox at 0.5 mg/kg for DVT prophylaxis and possible pulmonary embolism. We will check platelets again prior to administering 50 mg of Lovenox this evening at 1800. 3. Acute kidney injury, mild dehydration: Acute kidney injury has resolved. Patient decreased to normal saline at 75 mL/h. Overnight patient was given D5 half-normal saline at 200 mL/h. 4. Skin abrasions: Routine skin care 5. Chronic medical problems including essential tremor and hypertension: Continue home propranolol 6. DVT prophylaxis: Check platelets at 1600 and if adequate, close to 100, give 0.5 mg/kg enoxaparin at 1800 and 0 600. Reevaluate platelets tomorrow morning 7. GI prophylaxis: Omeprazole 20 mg every morning 8. Disposition: Concern for diminished lung sounds in the right lower lobe. Considering CTA this afternoon or tomorrow morning to rule out pulmonary embolism secondary to COVID-19 infection and elevated D-dimer. Procalcitonin has been ordered but will not be back for a few days. If the patient has further difficulties with fever or increased white blood cell count we will give the patient Rocephin and azithromycin IV for potential superinfection/bacterial infection.
[2020-12-13] MEDS ORDERED: Dexamethasone 4 MG/ML 5 ML MDV IVPUSH ONE (17:03)
[2020-12-13] MEDS: Enoxaparin 60 MG/0.6 ML Syringe SUBCUT SCH (17:40)
[2020-12-13] MEDS ORDERED: REMDESIVIR 200 MG in Sodium Chloride 0.9% 250 ML IV ONE (18:00)
[2020-12-14] MEDS: Acetaminophen 325 MG Tab PO SCH ×4 (04:52→23:52)
[2020-12-14] MEDS: Enoxaparin 60 MG/0.6 ML Syringe SUBCUT SCH ×2 (05:06→18:15)
[2020-12-14] MEDS ORDERED: Dexamethasone 4 MG/ML 5 ML MDV IVPUSH ONE (09:18)
--- NOTE | 2020-12-14 09:35 | PCM.PN ---
- General Info Date of Service: 12/14/20 Admission Dx/Problem (Free Text): Admission Diagnosis/Problem Admission Diagnosis/Problem Pneumonia Subjective Update: Patient states that he feels much better but is still concerned about how weak he is. He has no acute complaints Functional Status: Reports: Pain Controlled, Tolerating Diet, Ambulating, Urinating - Review of Systems General: Reports: Weakness HEENT: Reports: No Symptoms Pulmonary: Reports: No Symptoms Cardiovascular: Reports: No Symptoms Gastrointestinal: Reports: No Symptoms Genitourinary: Reports: No Symptoms Musculoskeletal: Reports: No Symptoms Skin: Reports: No Symptoms Neurological: Reports: Difficulty Walking, Weakness Psychiatric: Reports: No Symptoms - Patient Data Vitals - Most Recent: Last Vital Signs Temp 36.6 C 12/14/20 08:00 Pulse 96 12/14/20 08:00 Resp 19 12/14/20 08:00 BP 118/74 12/14/20 08:00 Pulse Ox 96 12/14/20 08:00 Weight - Most Recent: 102.421 kg I&O - Last 24 Hours: Intake & Output 12/13/20 12/14/20 12/14/20 23:59 06:59 14:59 Output Total Balance Lab Results Last 24 Hours: Laboratory Results - last 24 hr 12/13/20 12/13/20 12/13/20 Range/Units 16:05 16:05 16:05 WBC 3.7 (3.2-10.1) x10-3/uL RBC 4.44 (3.90-5.90) x10(6)uL Hgb 13.8 (12.9-17.7) g/dL Hct 41.3 (38.3-50.1) % MCV 92.9 (80.8-98.7) fL MCH 31.0 (27.0-33.3) pg MCHC 33.3 (28.7-35.3) g/dL RDW 13.6 (12.4-15.0) % Plt Count 95 L (117-477) x10(3)uL MPV 7.8 (6.7-11.0) fL Neut % (Auto) 67.1 (40.3-71.8) % Lymph % (Auto) 24.6 (15.8-45.3) % [place] % (Auto) 7.6 (5.5-15.2) % Eos % (Auto) 0.1 (0.1-6.8) % Baso % (Auto) 0.6 (0.3-3.8) % Neut # (Auto) 2.5 (1.7-6.9) x10-3/uL Lymph # (Auto) 0.9 (0.5-4.5) x10-3/uL [place] # (Auto) 0.3 (0.0-1.2) x10-3/uL Eos # (Auto) 0.0 (0.0-0.6) x10-3/uL Baso # (Auto) 0.0 (0.0-0.3) x10-3/uL Sodium (135-145) mmol/L Potassium (3.5-5.3) mmol/L Chloride (100-110) mmol/L Carbon Dioxide (21-32) mmol/L BUN (7-18) mg/dL Creatinine (0.70-1.30) mg/dL Est Cr Clr Drug Dosing mL/min Estimated GFR (MDRD) (>60) BUN/Creatinine Ratio (9-20) Glucose (80-116) mg/dL Calcium (8.6-10.2) mg/dL Total Bilirubin (0.1-1.3) mg/dL AST (5-25) IU/L ALT (12-36) U/L Alkaline Phosphatase (56-112) IU/L Creatine Kinase 5073 H* (60-160) IU/L Troponin I 343.3 H* (4.0-60.3) pg/mL Total Protein (6.0-8.0) g/dL Albumin (3.2-4.6) g/dL Globulin g/dL Albumin/Globulin Ratio 12/13/20 12/14/20 12/14/20 Range/Units 16:05 06:15 06:15 WBC 2.9 L (3.2-10.1) x10-3/uL RBC 4.81 (3.90-5.90) x10(6)uL Hgb 14.8 (12.9-17.7) g/dL Hct 44.6 (38.3-50.1) % MCV 92.8 (80.8-98.7) fL MCH 30.8 (27.0-33.3) pg MCHC 33.2 (28.7-35.3) g/dL RDW 13.5 (12.4-15.0) % Plt Count 106 L (117-477) x10(3)uL MPV 8.0 (6.7-11.0) fL Neut % (Auto) 72.0 H (40.3-71.8) % Lymph % (Auto) 18.3 (15.8-45.3) % [place] % (Auto) 9.4 (5.5-15.2) % Eos % (Auto) 0.0 L (0.1-6.8) % Baso % (Auto) 0.3 (0.3-3.8) % Neut # (Auto) 2.1 (1.7-6.9) x10-3/uL Lymph # (Auto) 0.5 (0.5-4.5) x10-3/uL [place] # (Auto) 0.3 (0.0-1.2) x10-3/uL Eos # (Auto) 0.0 (0.0-0.6) x10-3/uL Baso # (Auto) 0.0 (0.0-0.3) x10-3/uL Sodium 142 (135-145) mmol/L Potassium 4.1 (3.5-5.3) mmol/L Chloride 109 (100-110) mmol/L Carbon Dioxide 25 (21-32) mmol/L BUN 14 (7-18) mg/dL Creatinine 0.9 (0.70-1.30) mg/dL Est Cr Clr Drug Dosing 76.37 mL/min Estimated GFR (MDRD) > 60 (>60) BUN/Creatinine Ratio 15.6 (9-20) Glucose 121 H (80-116) mg/dL Calcium 8.1 L (8.6-10.2) mg/dL Total Bilirubin 0.5 (0.1-1.3) mg/dL AST 147 H D 154 H* (5-25) IU/L ALT 53 H D 60 H D (12-36) U/L Alkaline Phosphatase 76 (56-112) IU/L Creatine Kinase (60-160) IU/L Troponin I (4.0-60.3) pg/mL Total Protein 6.1 (6.0-8.0) g/dL Albumin 2.6 L (3.2-4.6) g/dL Globulin 3.5 g/dL Albumin/Globulin Ratio 0.7 Med Orders - Current: Current Medications Acetaminophen (Acetaminophen 325 Mg Tab) 650 mg PO Q6H [facility] Last Admin: 12/14/20 04:52 Dose: 650 mg Documented by: Enoxaparin Sodium (Enoxaparin 60 Mg/0.6 Ml Syringe) 50 mg SUBCUT Q12H [facility] Last Admin: 12/14/20 05:06 Dose: 50 mg Documented by: Sodium Chloride (Sodium Chloride 0.9% 10 Ml Syringe) 30 ml FLUSH ASDIRECTED [facility] Last Admin: 12/12/20 10:54 Dose: 30 ml Documented by: Discontinued Medications Aspirin (Aspirin 81 Mg Tab.Chew) 324 mg PO ONETIME ONE Stop: 12/12/20 13:10 Last Admin: 12/12/20 13:37 Dose: 324 mg Documented by: Dexamethasone (Dexamethasone 4 Mg/Ml 5 Ml Mdv) 6 mg IVPUSH ONETIME ONE Stop: 12/13/20 17:04 Last Admin: 12/13/20 17:18 Dose: 6 mg Documented by: Dexamethasone (Dexamethasone 4 Mg/Ml 5 Ml Mdv) 6 mg IVPUSH ONETIME ONE Stop: 12/14/20 09:19 Enoxaparin Sodium (Enoxaparin 100 Mg/1 Ml Syringe) 100 mg SUBCUT Q12H [facility] Last Admin: 12/13/20 05:26 Dose: 100 mg Documented by: Enoxaparin Sodium (Enoxaparin 100 Mg/1 Ml Syringe) 100 mg SUBCUT Q12H [facility] Last Admin: 12/12/20 21:18 Dose: Not Given Documented by: Heparin Sodium (Porcine) (Heparin Sodium 5,000 Units/Ml Vial) 5,000 units IVPUSH ONETIME ONE Stop: 12/12/20 13:14 Last Admin: 12/12/20 13:37 Dose: 5,000 units Documented by: Sodium Chloride (Normal Saline) 1,000 mls @ 999 mls/hr IV .BOLUS ONE Stop: 12/12/20 10:26 Last Admin: 12/12/20 09:40 Dose: 999 mls/hr Documented by: Bamlanivimab 700 mg/Etesevimab 1,400 mg/ Sodium Chloride 160 mls @ 310 mls/hr IV ONETIME ONE Stop: 12/12/20 10:30 Last Admin: 12/12/20 10:08 Dose: 310 mls/hr Documented by: Heparin Sodium/Sodium Chloride (Heparin 25,000 Units In 1/2 Ns 500 Ml) 25,000 units in 500 mls @ 19.998 mls/hr IV TITRATE WILDA; Protocol Last Admin: 12/12/20 13:38 Dose: 10.02 units/kg/hr, 19.998 mls/hr Documented by: Sodium Chloride (Normal Saline) 1,000 mls @ 999 mls/hr IV .BOLUS ONE Stop: 12/12/20 14:40 Last Admin: 12/12/20 13:40 Dose: 999 mls/hr Documented by: Sodium Chloride (Normal Saline) 1,000 mls @ 999 mls/hr IV .BOLUS ONE Stop: 12/12/20 16:34 Last Admin: 12/12/20 15:40 Dose: 999 mls/hr Documented by: Sodium Chloride (Normal Saline) 1,000 mls @ 75 mls/hr IV ASDIRECTED [facility] Last Admin: 12/12/20 20:00 Dose: 75 mls/hr Documented by: Dextrose/Sodium Chloride (Dextrose 5%-1/2 Ns) 1,000 mls @ 200 mls/hr IV ASDIR ECTED [facility] Last Admin: 12/13/20 05:27 Dose: 200 mls/hr Documented by: Sodium Chloride (Normal Saline) 1,000 mls @ 150 mls/hr IV ASDIRECTED [facility] Last Admin: 12/13/20 19:01 Dose: 150 mls/hr Documented by: Remdesivir 200 mg/ Sodium (Chloride) 250 mls @ 200 mls/hr IV ONETIME ONE Stop: 12/13/20 19:14 Last Admin: 12/13/20 19:00 Dose: 200 mls/hr Documented by: Influenza Virus Vaccine (Pharmacy To Dose - Influenza Vaccine) 1 each IM ONETIME ONE Stop: 12/12/20 18:15 Influenza Virus Vaccine (Flu Vacc [id number](6mos Up)/Pf 60 Mcg/0.5 Ml Syringe) 60 mcg IM .ONCE ONE Stop: 12/12/20 18:31 Potassium Chloride (Potassium Chloride 20 Meq Tab.Er) 40 meq PO ONETIME ONE Stop: 12/13/20 09:50 Last Admin: 12/13/20 10:10 Dose: 40 meq Documented by: Ticagrelor (Ticagrelor 90 Mg Tab) 180 mg PO ONETIME ONE Stop: 12/12/20 13:10 Last Admin: 12/12/20 13:37 Dose: 180 mg Documented by: Comments:: Patient was sitting in bedside chair watching television. Awake, alert, oriented, pleasant. Patient was able to stand with some assistance and was able to stand throughout the interview and physical exam. He was little shaky on his feet but he does have a left upper extremity familiar tremor. - Exam Quality Assessment: Supplemental Oxygen, DVT Prophylaxis General: Alert, Oriented, Cooperative, No Acute Distress HEENT: EOMI Neck: Supple Lungs: Crackles, Other (Mildly decreased lung sounds at the bases, right greater than left) Cardiovascular: Regular Rate, Regular Rhythm GI/Abdominal Exam: Normal Bowel Sounds, Soft, Non-Tender Back Exam: Normal Inspection. No: CVA Tenderness (R), CVA Tenderness (L) Extremities: Pedal Edema Peripheral Pulses: 2+: Radial (L), Radial (R) Skin: Warm, Dry Neurological: No New Focal Deficit Psy/Mental Status: Alert, Normal Affect, Normal Mood - Patient Data Lab Results Last 24 hrs: Laboratory Results - last 24 hr 12/13/20 12/13/20 12/13/20 Range/Units 16:05 16:05 16:05 WBC 3.7 (3.2-10.1) x10-3/uL RBC 4.44 (3.90-5.90) x10(6)uL Hgb 13.8 (12.9-17.7) g/dL Hct 41.3 (38.3-50.1) % MCV 92.9 (80.8-98.7) fL MCH 31.0 (27.0-33.3) pg MCHC 33.3 (28.7-35.3) g/dL RDW 13.6 (12.4-15.0) % Plt Count 95 L (117-477) x10(3)uL MPV 7.8 (6.7-11.0) fL Neut % (Auto) 67.1 (40.3-71.8) % Lymph % (Auto) 24.6 (15.8-45.3) % [place] % (Auto) 7.6 (5.5-15.2) % Eos % (Auto) 0.1 (0.1-6.8) % Baso % (Auto) 0.6 (0.3-3.8) % Neut # (Auto) 2.5 (1.7-6.9) x10-3/uL Lymph # (Auto) 0.9 (0.5-4.5) x10-3/uL [place] # (Auto) 0.3 (0.0-1.2) x10-3/uL Eos # (Auto) 0.0 (0.0-0.6) x10-3/uL Baso # (Auto) 0.0 (0.0-0.3) x10-3/uL Sodium (135-145) mmol/L Potassium (3.5-5.3) mmol/L Chloride (100-110) mmol/L Carbon Dioxide (21-32) mmol/L BUN (7-18) mg/dL Creatinine (0.70-1.30) mg/dL Est Cr Clr Drug Dosing mL/min Estimated GFR (MDRD) (>60) BUN/Creatinine Ratio (9-20) Glucose (80-116) mg/dL Calcium (8.6-10.2) mg/dL Total Bilirubin (0.1-1.3) mg/dL AST (5-25) IU/L ALT (12-36) U/L Alkaline Phosphatase (56-112) IU/L Creatine Kinase 5073 H* (60-160) IU/L Troponin I 343.3 H* (4.0-60.3) pg/mL Total Protein (6.0-8.0) g/dL Albumin (3.2-4.6) g/dL Globulin g/dL Albumin/Globulin Ratio 12/13/20 12/14/20 12/14/20 Range/Units 16:05 06:15 06:15 WBC 2.9 L (3.2-10.1) x10-3/uL RBC 4.81 (3.90-5.90) x10(6)uL Hgb 14.8 (12.9-17.7) g/dL Hct 44.6 (38.3-50.1) % MCV 92.8 (80.8-98.7) fL MCH 30.8 (27.0-33.3) pg MCHC 33.2 (28.7-35.3) g/dL RDW 13.5 (12.4-15.0) % Plt Count 106 L (117-477) x10(3)uL MPV 8.0 (6.7-11.0) fL Neut % (Auto) 72.0 H (40.3-71.8) % Lymph % (Auto) 18.3 (15.8-45.3) % [place] % (Auto) 9.4 (5.5-15.2) % Eos % (Auto) 0.0 L (0.1-6.8) % Baso % (Auto) 0.3 (0.3-3.8) % Neut # (Auto) 2.1 (1.7-6.9) x10-3/uL Lymph # (Auto) 0.5 (0.5-4.5) x10-3/uL [place] # (Auto) 0.3 (0.0-1.2) x10-3/uL Eos # (Auto) 0.0 (0.0-0.6) x10-3/uL Baso # (Auto) 0.0 (0.0-0.3) x10-3/uL Sodium 142 (135-145) mmol/L Potassium 4.1 (3.5-5.3) mmol/L Chloride 109 (100-110) mmol/L Carbon Dioxide 25 (21-32) mmol/L BUN 14 (7-18) mg/dL Creatinine 0.9 (0.70-1.30) mg/dL Est Cr Clr Drug Dosing 76.37 mL/min Estimated GFR (MDRD) > 60 (>60) BUN/Creatinine Ratio 15.6 (9-20) Glucose 121 H (80-116) mg/dL Calcium 8.1 L (8.6-10.2) mg/dL Total Bilirubin 0.5 (0.1-1.3) mg/dL AST 147 H D 154 H* (5-25) IU/L ALT 53 H D 60 H D (12-36) U/L Alkaline Phosphatase 76 (56-112) IU/L Creatine Kinase (60-160) IU/L Troponin I (4.0-60.3) pg/mL Total Protein 6.1 (6.0-8.0) g/dL Albumin 2.6 L (3.2-4.6) g/dL Globulin 3.5 g/dL Albumin/Globulin Ratio 0.7 Result Diagrams: 12/14/20 06:15 12/14/20 06:15 Sepsis Event Note - Evaluation Sepsis Screening Result: No Definite Risk - Focused Exam Vital Signs: Vital Signs Temp Temp Pulse Resp BP Pulse Ox Pulse Ox 12/14/20 08:00 36.6 C 96 19 118/74 96 12/14/20 03:00 36.9 C 79 18 140/85 93 L 12/14/20 00:00 92 L 12/13/20 23:00 36.6 C 66 18 107/60 96 - Problem List & Annotations (1) Hypertension SNOMED Code(s): 93862226 Code(s): I10 - ESSENTIAL (PRIMARY) HYPERTENSION Status: Chronic Current Visit: Yes (2) Essential tremor SNOMED Code(s): 400200864 Code(s): G25.0 - ESSENTIAL TREMOR Status: Chronic Current Visit: Yes (3) Palliative care encounter SNOMED Code(s): 774084543, 050778676 Code(s): Z51.5 - ENCOUNTER FOR PALLIATIVE CARE Status: Acute Current Visit: Yes (4) Abrasion of both knees SNOMED Code(s): 410240855 Code(s): S80.211A - ABRASION, RIGHT KNEE, INITIAL ENCOUNTER; S80.212A - ABRASION, LEFT KNEE, INITIAL ENCOUNTER Status: Acute Current Visit: Yes (5) Acute renal insufficiency SNOMED Code(s): 028351781 Code(s): N28.9 - DISORDER OF KIDNEY AND URETER, UNSPECIFIED Status: Acute Current Visit: Yes (6) Elevated liver function tests SNOMED Code(s): 716927664 Code(s): R79.89 - OTHER SPECIFIED ABNORMAL FINDINGS OF BLOOD CHEMISTRY Status: Acute Current Visit: Yes (7) Fall from bed SNOMED Code(s): 43796003 Code(s): W06.XXXA - FALL FROM BED, INITIAL ENCOUNTER Status: Acute Current Visit: Yes (8) Ketonuria SNOMED Code(s): 542001304 Code(s): R82.4 - ACETONURIA Status: Acute Current Visit: Yes (9) Moderate dehydration SNOMED Code(s): 3392944117117 Code(s): E86.0 - DEHYDRATION Status: Acute Current Visit: Yes (10) NSTEMI (non-ST elevated myocardial infarction) SNOMED Code(s): 90946400 Code(s): I21.4 - NON-ST ELEVATION (NSTEMI) MYOCARDIAL INFARCTION Status: Acute Current Visit: Yes (11) Pneumonia due to COVID-19 virus SNOMED Code(s): 832572980393506387 Code(s): U07.1 - COVID-19; J12.82 - PNEUMONIA DUE TO CORONAVIRUS DISEASE 2019 Status: Acute Current Visit: Yes (12) Hematuria SNOMED Code(s): 31915044 Code(s): R31.9 - HEMATURIA, UNSPECIFIED Status: Acute Current Visit: Yes - Problem List Review Problem List Initiated/Reviewed/Updated: Yes - My Orders Last 24 Hours: My Active Orders 12/13/20 16:05 PROCALCITONIN Urgent 12/13/20 18:00 Enoxaparin [Lovenox] 50 mg SUBCUT Q12H 12/14/20 09:19 Incentive Spirometry [RT Incentive Spirometry] [RC] ASDIRECTED 12/15/20 CBC WITH AUTO DIFF [HEME] Routine COMPREHENSIVE METABOLIC PN,CMP [CHEM] Routine CREATINE KINASE,CK [CHEM] Routine TROPONIN I [CHEM] Routine - Plan Plan:: 1. COVID-19 positive with Covid pneumonia: Continuous pulse oximetry with supplemental oxygen. Patient is currently maintaining low to mid 90% oxygenation on 2 L supplemental O2, this is improved from yesterday. 2. NSTEMI: Consultation with cardiology in [place] suggested enoxaparin 1 mg/kg for 24 hours. Patient had some nosebleed overnight. Consultation with ho spitalist in the [facility] in [place] recommended continuing Lovenox at 0.5 mg/kg for DVT prophylaxis and possible pulmonary embolism. Patient's platelets were 106 this morning. We will continue with enoxaparin at 0.5 mg/kg, approximately 50 mg enoxaparin daily. 3. Acute kidney injury, mild dehydration: Acute kidney injury has resolved. Supplemental hydration has been stopped. Patient is eating a normal diet at this time. 4. Skin abrasions: Routine skin care 5. Chronic medical problems including essential tremor and hypertension: Continue home propranolol 6. DVT prophylaxis: Enoxaparin, approximately 0.5 mg/kg, 50 mg, daily 7. GI prophylaxis: Omeprazole 20 mg every morning 8. Disposition: Concern for diminished lung sounds in the right lower lobe. Considering CTA tomorrow morning to rule out pulmonary embolism secondary to COVID-19 infection and elevated D-dimer. Procalcitonin has been ordered but will not be back for a few days. If the patient has further difficulties with fever or increased white blood cell count we will give the patient Rocephin and azithromycin IV for potential superinfection/bacterial infection, but the patient seems to be improving.
[2020-12-14] MEDS: Propranolol 60 MG Cap.ER PO SCH (10:43)
[2020-12-15] MEDS: Acetaminophen 325 MG Tab PO SCH ×2 (06:00→15:54)
[2020-12-15] MEDS: Enoxaparin 60 MG/0.6 ML Syringe SUBCUT SCH ×2 (06:49→18:07)
[2020-12-15] MEDS ORDERED: Dexamethasone 4 MG/ML 5 ML MDV IVPUSH ONE (07:37)
[2020-12-15] MEDS ORDERED: Sodium Chloride 0.9% 500 ML IV SCH (07:45)
[2020-12-15] MEDS ORDERED: Iopamidol 755 Mg/ML 100 ML Bottle IV ONE (08:36)
[2020-12-15] MEDS ORDERED: Albuterol/Ipratropium 3.0-0.5 MG/3 ML Neb Soln NEB PRN (08:52)
--- NOTE | 2020-12-15 09:00 | PCM.PN ---
- General Info Date of Service: 12/15/20 Admission Dx/Problem (Free Text): Admission Diagnosis/Problem Admission Diagnosis/Problem Pneumonia Subjective Update: Patient states he is feeling better and stronger today but is still concerned about being unsteady on his feet and complains of weakness and balance problems Functional Status: Reports: Pain Controlled, Tolerating Diet, Ambulating, Urinating - Review of Systems General: Reports: Weakness HEENT: Reports: No Symptoms Pulmonary: Reports: No Symptoms Cardiovascular: Reports: No Symptoms Gastrointestinal: Reports: No Symptoms Genitourinary: Reports: No Symptoms Musculoskeletal: Reports: No Symptoms Skin: Reports: No Symptoms Neurological: Reports: Difficulty Walking, Weakness Psychiatric: Reports: No Symptoms - Patient Data Vitals - Most Recent: Last Vital Signs Temp 36.6 C 12/15/20 06:15 Pulse 76 12/15/20 06:15 Resp 18 12/15/20 06:15 BP 133/77 12/15/20 06:15 Pulse Ox 94 L 12/15/20 06:15 Weight - Most Recent: 102.421 kg I&O - Last 24 Hours: Intake & Output 12/14/20 12/15/20 12/15/20 22:59 06:59 14:59 Output Total 1300 Balance -1300 Lab Results Last 24 Hours: Laboratory Results - last 24 hr 12/15/20 12/15/20 12/15/20 Range/Units 06:35 06:35 06:35 WBC 5.1 (3.2-10.1) x10-3/uL RBC 4.68 (3.90-5.90) x10(6)uL Hgb 14.5 (12.9-17.7) g/dL Hct 43.6 (38.3-50.1) % MCV 93.2 (80.8-98.7) fL MCH 31.0 (27.0-33.3) pg MCHC 33.2 (28.7-35.3) g/dL RDW 13.7 (12.4-15.0) % Plt Count 156 (117-477) x10(3)uL MPV 8.0 (6.7-11.0) fL Neut % (Auto) 74.7 H (40.3-71.8) % Lymph % (Auto) 13.5 L (15.8-45.3) % Hart % (Auto) 11.6 (5.5-15.2) % Eos % (Auto) 0.0 L (0.1-6.8) % Baso % (Auto) 0.2 L (0.3-3.8) % Neut # (Auto) 3.8 (1.7-6.9) x10-3/uL Lymph # (Auto) 0.7 (0.5-4.5) x10-3/uL Hart # (Auto) 0.6 (0.0-1.2) x10-3/uL Eos # (Auto) 0.0 (0.0-0.6) x10-3/uL Baso # (Auto) 0.0 (0.0-0.3) x10-3/uL Sodium 143 (135-145) mmol/L Potassium 4.3 (3.5-5.3) mmol/L Chloride 107 (100-110) mmol/L Carbon Dioxide 26 (21-32) mmol/L BUN 19 H (7-18) mg/dL Creatinine 0.9 (0.70-1.30) mg/dL Est Cr Clr Drug Dosing 76.37 mL/min Estimated GFR (MDRD) > 60 (>60) BUN/Creatinine Ratio 21.1 H (9-20) Glucose 119 H (80-116) mg/dL Calcium 8.0 L (8.6-10.2) mg/dL Total Bilirubin 0.4 (0.1-1.3) mg/dL AST 113 H D (5-25) IU/L ALT 63 H (12-36) U/L Alkaline Phosphatase 80 (56-112) IU/L Creatine Kinase 1585 H* (60-160) IU/L Troponin I 62.3 H* (4.0-60.3) pg/mL Total Protein 6.2 (6.0-8.0) g/dL Albumin 2.7 L (3.2-4.6) g/dL Globulin 3.5 g/dL Albumin/Globulin Ratio 0.8 Med Orders - Current: Current Medications Acetaminophen (Acetaminophen 325 Mg Tab) 650 mg PO Q6H [facility] Last Admin: 12/15/20 06:00 Dose: Not Given Documented by: Albuterol/Ipratropium (Albuterol/Ipratropium 3.0-0.5 Mg/3 Ml Neb Soln) 3 ml NEB Q2H PRN PRN Reason: Wheezing Enoxaparin Sodium (Enoxaparin 60 Mg/0.6 Ml Syringe) 50 mg SUBCUT Q12H [facility] Last Admin: 12/15/20 06:49 Dose: 50 mg Documented by: Sodium Chloride (Normal Saline) 500 mls @ 125 mls/hr IV ASDIRECTED [facility] Propranolol HCl (Propranolol 60 Mg Cap.Er) 120 mg PO DAILY [facility] Last Admin: 12/14/20 10:43 Dose: 120 mg Documented by: Sodium Chloride (Sodium Chloride 0.9% 10 Ml Syringe) 30 ml FLUSH ASDIRECTED [facility] Last Admin: 12/12/20 10:54 Dose: 30 ml Documented by: Discontinued Medications Aspirin (Aspirin 81 Mg Tab.Chew) 324 mg PO ONETIME ONE Stop: 12/12/20 13:10 Last Admin: 12/12/20 13:37 Dose: 324 mg Documented by: Dexamethasone (Dexamethasone 4 Mg/Ml 5 Ml Mdv) 6 mg IVPUSH ONETIME ONE Stop: 12/13/20 17:04 Last Admin: 12/13/20 17:18 Dose: 6 mg Documented by: Dexamethasone (Dexamethasone 4 Mg/Ml 5 Ml Mdv) 6 mg IVPUSH ONETIME ONE Stop: 12/14/20 09:19 Last Admin: 12/14/20 10:41 Dose: 6 mg Documented by: Dexamethasone (Dexamethasone 4 Mg/Ml 5 Ml Mdv) 6 mg IVPUSH ONETIME ONE Stop: 12/15/20 07:38 Enoxaparin Sodium (Enoxaparin 100 Mg/1 Ml Syringe) 100 mg SUBCUT Q12H [facility] Last Admin: 12/13/20 05:26 Dose: 100 mg Documented by: Enoxaparin Sodium (Enoxaparin 100 Mg/1 Ml Syringe) 100 mg SUBCUT Q12H [facility] Last Admin: 12/12/20 21:18 Dose: Not Given Documented by: Heparin Sodium (Porcine) (Heparin Sodium 5,000 Units/Ml Vial) 5,000 units IVPUSH ONETIME ONE Stop: 12/12/20 13:14 Last Admin: 12/12/20 13:37 Dose: 5,000 units Documented by: Sodium Chloride (Normal Saline) 1,000 mls @ 999 mls/hr IV .BOLUS ONE Stop: 12/12/20 10:26 Last Admin: 12/12/20 09:40 Dose: 999 mls/hr Documented by: Bamlanivimab 700 mg/Etesevimab 1,400 mg/ Sodium Chloride 160 mls @ 310 mls/hr IV ONETIME ONE Stop: 12/12/20 10:30 Last Admin: 12/12/20 10:08 Dose: 310 mls/hr Documented by: Heparin Sodium/Sodium Chloride (Heparin 25,000 Units In 1/2 Ns 500 Ml) 25,000 units in 500 mls @ 19.998 mls/hr IV TITRATE [facility]ILDA; Protocol Last Admin: 12/12/20 13:38 Dose: 10.02 units/kg/hr, 19.998 mls/hr Documented by: Sodium Chloride (Normal Saline) 1,000 mls @ 999 mls/hr IV .BOLUS ONE Stop: 12/12/20 14:40 Last Admin: 12/12/20 13:40 Dose: 999 mls/hr Documented by: Sodium Chloride (Normal Saline) 1,000 mls @ 999 mls/hr IV .BOLUS ONE Stop: 12/12/20 16:34 Last Admin: 12/12/20 15:40 Dose: 999 mls/hr Documented by: Sodium Chloride (Normal Saline) 1,000 mls @ 75 mls/hr IV ASDIRECTED [facility] Last Admin: 12/12/20 20:00 Dose: 75 mls/hr Documented by: Dextrose/Sodium Chloride (Dextrose 5%-1/2 Ns) 1,000 mls @ 200 mls/hr IV ASDIRECTED [facility] Last Admin: 12/13/20 05:27 Dose: 200 mls/hr Documented by: Sodium Chloride (Normal Saline) 1,000 mls @ 150 mls/hr IV ASDIRECTED [facility] Last Admin: 12/13/20 19:01 Dose: 150 mls/hr Documented by: Remdesivir 200 mg/ Sodium (Chloride) 250 mls @ 200 mls/hr IV ONETIME ONE Stop: 12/13/20 19:14 Last Admin: 12/13/20 19:00 Dose: 200 mls/hr Documented by: Influenza Virus Vaccine (Pharmacy To Dose - Influenza Vaccine) 1 each IM ONETIME ONE Stop: 12/12/20 18:15 Influenza Virus Vaccine (Flu Vacc As8521-40(6mos Up)/Pf 60 Mcg/0.5 Ml Syringe) 60 mcg IM .ONCE ONE Stop: 12/12/20 18:31 Iopamidol (Iopamidol 755 Mg/Ml 100 Ml Bottle) 90 ml IV . DIRECTED ONE Stop: 12/15/20 08:37 Potassium Chloride (Potassium Chloride 20 Meq Tab.Er) 40 meq PO ONETIME ONE Stop: 12/13/20 09:50 Last Admin: 12/13/20 10:10 Dose: 40 meq Documented by: Ticagrelor (Ticagrelor 90 Mg Tab) 180 mg PO ONETIME ONE Stop: 12/12/20 13:10 Last Admin: 12/12/20 13:37 Dose: 180 mg Documented by: Comments:: Patient sitting in bedside chair next to the window eating breakfast, awake, alert, pleasant, interactive - Exam Quality Assessment: Supplemental Oxygen, DVT Prophylaxis General: Alert, Oriented, Cooperative, No Acute Distress HEENT: EOMI Neck: Supple Lungs: Crackles, Wheezing Cardiovascular: Regular Rate, Regular Rhythm GI/Abdominal Exam: Normal Bowel Sounds, Soft, Non-Tender Back Exam: Normal Inspection. No: CVA Tenderness (R), CVA Tenderness (L) Extremities: Pedal Edema Peripheral Pulses: 2+: Radial (L), Radial (R) Skin: Warm, Dry Neurological: No New Focal Deficit Psy/Mental Status: Alert, Normal Affect, Normal Mood - Patient Data Lab Results Last 24 hrs: Laboratory Results - last 24 hr 12/15/20 12/15/20 12/15/20 Range/Units 06:35 06:35 06:35 WBC 5.1 (3.2-10.1) x10-3/uL RBC 4.68 (3.90-5.90) x10(6)uL Hgb 14.5 (12.9-17.7) g/dL Hct 43.6 (38.3-50.1) % MCV 93.2 (80.8-98.7) fL MCH 31.0 (27.0-33.3) pg MCHC 33.2 (28.7-35.3) g/dL RDW 13.7 (12.4-15.0) % Plt Count 156 (117-477) x10(3)uL MPV 8.0 (6.7-11.0) fL Neut % (Auto) 74.7 H (40.3-71.8) % Lymph % (Auto) 13.5 L (15.8-45.3) % Hart % (Auto) 11.6 (5.5-15.2) % Eos % (Auto) 0.0 L (0.1-6.8) % Baso % (Auto) 0.2 L (0.3-3.8) % Neut # (Auto) 3.8 (1.7-6.9) x10-3/uL Lymph # (Auto) 0.7 (0.5-4.5) x10-3/uL Hart # (Auto) 0.6 (0.0-1.2) x10-3/uL Eos # (Auto) 0.0 (0.0-0.6) x10-3/uL Baso # (Auto) 0.0 (0.0-0.3) x10-3/uL Sodium 143 (135-145) mmol/L Potassium 4.3 (3.5-5.3) mmol/L Chloride 107 (100-110) mmol/L Carbon Dioxide 26 (21-32) mmol/L BUN 19 H (7-18) mg/dL Creatinine 0.9 (0.70-1.30) mg/dL Est Cr Clr Drug Dosing 76.37 mL/min Estimated GFR (MDRD) > 60 (>60) BUN/Creatinine Ratio 21.1 H (9-20) Glucose 119 H (80-116) mg/dL Calcium 8.0 L (8.6-10.2) mg/dL Total Bilirubin 0.4 (0.1-1.3) mg/dL AST 113 H D (5-25) IU/L ALT 63 H (12-36) U/L Alkaline Phosphatase 80 (56-112) IU/L Creatine Kinase 1585 H* (60-160) IU/L Troponin I 62.3 H* (4.0-60.3) pg/mL Total Protein 6.2 (6.0-8.0) g/dL Albumin 2.7 L (3.2-4.6) g/dL Globulin 3.5 g/dL Albumin/Globulin Ratio 0.8 Result Diagrams: 12/15/20 06:35 11/08/21 06:35 Sepsis Event Note - Evaluation Sepsis Screening Result: No Definite Risk - Focused Exam Vital Signs: Vital Signs Temp Pulse Resp BP Pulse Ox Pulse Ox 12/15/20 06:15 36.6 C 76 18 133/77 94 L 12/15/20 00:00 36.4 C 66 16 120/76 93 L 93 L - Problem List & Annotations (1) Hypertension SNOMED Code(s): 43186550 Code(s): I10 - ESSENTIAL (PRIMARY) HYPERTENSION Status: Chronic Current Visit: Yes (2) Essential tremor SNOMED Code(s): 500164860 Code(s): G25.0 - ESSENTIAL TREMOR Status: Chronic Current Visit: Yes (3) Palliative care encounter SNOMED Code(s): 554339337, 452925026 Code(s): Z51.5 - ENCOUNTER FOR PALLIATIVE CARE Status: Acute Current Visit: Yes (4) Abrasion of both knees SNOMED Code(s): 379475075 Code(s): S80.211A - ABRASION, RIGHT KNEE, INITIAL ENCOUNTER; S80.212A - ABRASION, LEFT KNEE, INITIAL ENCOUNTER Status: Acute Current Visit: Yes (5) Acute renal insufficiency SNOMED Code(s): 374233551 Code(s): N28.9 - DISORDER OF KIDNEY AND URETER, UNSPECIFIED Status: Acute Current Visit: Yes (6) Elevated liver function tests SNOMED Code(s): 047578623 Code(s): R79.89 - OTHER SPECIFIED ABNORMAL FINDINGS OF BLOOD CHEMISTRY St atus: Acute Current Visit: Yes (7) Fall from bed SNOMED Code(s): 74247973 Code(s): W06.XXXA - FALL FROM BED, INITIAL ENCOUNTER Status: Acute Current Visit: Yes (8) Ketonuria SNOMED Code(s): 943058903 Code(s): R82.4 - ACETONURIA Status: Acute Current Visit: Yes (9) Moderate dehydration SNOMED Code(s): 8363749148534 Code(s): E86.0 - DEHYDRATION Status: Acute Current Visit: Yes (10) NSTEMI (non-ST elevated myocardial infarction) SNOMED Code(s): 50704718 Code(s): I21.4 - NON-ST ELEVATION (NSTEMI) MYOCARDIAL INFARCTION Status: Acute Current Visit: Yes (11) Pneumonia due to COVID-19 virus SNOMED Code(s): 931328492180141459 Code(s): U07.1 - COVID-19; J12.82 - PNEUMONIA DUE TO CORONAVIRUS DISEASE 2019 Status: Acute Current Visit: Yes (12) Hematuria SNOMED Code(s): 46933706 Code(s): R31.9 - HEMATURIA, UNSPECIFIED Status: Acute Current Visit: Yes - Problem List Review Problem List Initiated/Reviewed/Updated: Yes - My Orders Last 24 Hours: My Active Orders 12/14/20 09:19 Incentive Spirometry [RT Incentive Spirometry] [RC] ASDIRECTED 12/14/20 10:09 OT Evaluation and Treatment [CONS] Routine PT Evaluation and Treatment [CONS] Routine 12/14/20 10:15 Propranolol [Inderal LA] 120 mg PO DAILY 12/15/20 07:35 Ang Chest [CT] Routine 12/15/20 07:45 Sodium Chloride 0.9% [Normal Saline] 500 ml IV ASDIRECTED 12/15/20 08:52 RT Aerosol Therapy [RC] ASDIRECTED Albuterol/Ipratropium [DuoNeb 3.0-0.5 MG/3 ML] 3 ml NEB Q2H PRN - Plan Plan:: 1. COVID-19 positive with Covid pneumonia: Continuous pulse oximetry with supplemental oxygen. Patient is currently maintaining mid 90% oxygenation on 0-2 L supplemental O2, this is improved from yesterday. CTA today to rule out pulmonary embolism and quantify whether or not the patient has any obvious Covid lung damage and/or pneumonia 2. NSTEMI: Platelets today are 156, continue with 50 mg enoxaparin subcu twice daily. Troponin continues to normalize. 3. Acute kidney injury, mild dehydration: Acute kidney injury has resolved. S upplemental hydration has been stopped. Patient is eating a normal diet at this time. Patient will be given 500 mL normal saline to help with contrast for CTA. 4. Skin abrasions: Routine skin care 5. Chronic medical problems including essential tremor and hypertension: Continue home propranolol 6. DVT prophylaxis: Enoxaparin, approximately 0.5 mg/kg, 50 mg, daily 7. GI prophylaxis: Omeprazole 20 mg every morning 8. Disposition: Patient will have CTA today, further treatment recommendations based on CTA results. Patient is likely on day 9 since his symptoms began. Patient should be able to leave isolation the morning of 12/17/2020. Patient will have OT/PT today. Ending improvement patient may be discharged in 2 days or transfer to subacute rehab.
[2020-12-15] MEDS: Propranolol 60 MG Cap.ER PO SCH (09:04)
[2020-12-15] MEDS ORDERED: Acetaminophen 325 MG Tab PO PRN (11:24)
[2020-12-16] MEDS: Enoxaparin 60 MG/0.6 ML Syringe SUBCUT SCH (06:50)
[2020-12-16] MEDS: Propranolol 60 MG Cap.ER PO SCH (08:01)
[2020-12-16] MEDS: Dexamethasone 4 MG/ML 5 ML MDV IVPUSH SCH (08:18)
[2020-12-16] MEDS: Sodium Chloride 0.9% 10 ML Syringe FLUSH SCH (08:19)
--- NOTE | 2020-12-16 08:28 | PCM.PN ---
- General Info Date of Service: 12/16/20 Admission Dx/Problem (Free Text): Admission Diagnosis/Problem Admission Diagnosis/Problem Pneumonia Subjective Update: Patient states that he continues to feel better and stronger but he is concerned that he is having to get up and urinate quite frequently at night. I ensured him that we gave him an extra liter of fluid yesterday and that this was likely part of the cause and that he should restrict his fluid intake after dinner tonight and see if his symptoms improve tomorrow. He has no other acute complaints Functional Status: Reports: Pain Controlled, Tolerating Diet, Ambulating, Urinating - Review of Systems General: Reports: Weakness HEENT: Reports: No Symptoms Pulmonary: Reports: No Symptoms Cardiovascular: Reports: No Symptoms Gastrointestinal: Reports: No Symptoms Genitourinary: Reports: Frequency Musculoskeletal: Reports: No Symptoms Skin: Reports: No Symptoms Neurological: Reports: No Symptoms Psychiatric: Reports: No Symptoms - Patient Data Vitals - Most Recent: Last Vital Signs Temp 36.6 C 12/16/20 04:00 Pulse 66 12/16/20 04:00 Resp 18 12/16/20 04:00 BP 143/82 H 12/16/20 04:00 Pulse Ox 94 L 12/16/20 04:00 Weight - Most Recent: 102.421 kg Med Orders - Current: Current Medications Acetaminophen (Acetaminophen 325 Mg Tab) 650 mg PO Q6H PRN PRN Reason: Pain/Fever Last Admin: 12/16/20 00:52 Dose: 650 mg Documented by: Albuterol/Ipratropium (Albuterol/Ipratropium 3.0-0.5 Mg/3 Ml Neb Soln) 3 ml NEB Q2H PRN PRN Reason: Wheezing Dexamethasone (Dexamethasone 4 Mg/Ml 5 Ml Mdv) 6 mg IVPUSH DAILY [facility] Stop: 12/17/20 23:00 Last Admin: 12/16/20 08:18 Dose: 6 mg Documented by: Enoxaparin Sodium (Enoxaparin 60 Mg/0.6 Ml Syringe) 50 mg SUBCUT Q12H [facility] Last Admin: 12/16/20 06:50 Dose: 50 mg Documented by: Sodium Chloride (Normal Saline) 500 mls @ 125 mls/hr IV ASDIRECTED [facility] Last Admin: 12/15/20 09:20 Dose: 125 mls/hr Documented by: Propranolol HCl (Propranolol 60 Mg Cap.Er) 120 mg PO DAILY [facility] Last Admin: 12/16/20 08:01 Dose: 120 mg Documented by: Sodium Chloride (Sodium Chloride 0.9% 10 Ml Syringe) 30 ml FLUSH ASDIRECTED [facility] Last Admin: 12/16/20 08:19 Dose: 30 ml Documented by: Discontinued Medications Acetaminophen (Acetaminophen 325 Mg Tab) 650 mg PO Q6H [facility] Last Admin: 12/15/20 15:54 Dose: Not Given Documented by: Aspirin (Aspirin 81 Mg Tab.Chew) 324 mg PO ONETIME ONE Stop: 12/12/20 13:10 Last Admin: 12/12/20 13:37 Dose: 324 mg Documented by: Dexamethasone (Dexamethasone 4 Mg/Ml 5 Ml Mdv) 6 mg IVPUSH ONETIME ONE Stop: 12/13/20 17:04 Last Admin: 12/13/20 17:18 Dose: 6 mg Documented by: Dexamethasone (Dexamethasone 4 Mg/Ml 5 Ml Mdv) 6 mg IVPUSH ONETIME ONE Stop: 12/14/20 09:19 Last Admin: 12/14/20 10:41 Dose: 6 mg Documented by: Dexamethasone (Dexamethasone 4 Mg/Ml 5 Ml Mdv) 6 mg IVPUSH ONETIME ONE Stop: 12/15/20 07:38 Last Admin: 12/15/20 09:04 Dose: 6 mg Documented by: Enoxaparin Sodium (Enoxaparin 100 Mg/1 Ml Syringe) 100 mg SUBCUT Q12H [facility] Last Admin: 12/13/20 05:26 Dose: 100 mg Documented by: Enoxaparin Sodium (Enoxaparin 100 Mg/1 Ml Syringe) 100 mg SUBCUT Q12H [facility] Last Admin: 12/12/20 21:18 Dose: Not Given Documented by: Heparin Sodium (Porcine) (Heparin Sodium 5,000 Units/Ml Vial) 5,000 units IVPUSH ONETIME ONE Stop: 12/12/20 13:14 Last Admin: 12/12/20 13:37 Dose: 5,000 units Documented by: Sodium Chloride (Normal Saline) 1,000 mls @ 999 mls/hr IV .BOLUS ONE Stop: 12/12/20 10:26 Last Admin: 12/12/20 09:40 Dose: 999 mls/hr Documented by: Bamlanivimab 700 mg/Etesevimab 1,400 mg/ Sodium Chloride 160 mls @ 310 mls/hr IV ONETIME ONE Stop: 12/12/20 10:30 Last Admin: 12/12/20 10:08 Dose: 310 mls/hr Documented by: Heparin Sodium/Sodium Chloride (Heparin 25,000 Units In 1/2 Ns 500 Ml) 25,000 units in 500 mls @ 19.998 mls/hr IV TITRATE WILDA; Protocol Last Admin: 12/12/20 13:38 Dose: 10.02 units/kg/hr, 19.998 mls/hr Documented by: Sodium Chloride (Normal Saline) 1,000 mls @ 999 mls/hr IV .BOLUS ONE Stop: 12/12/20 14:40 Last Admin: 12/12/20 13:40 Dose: 999 mls/hr Documented by: Sodium Chloride (Normal Saline) 1,000 mls @ 999 mls/hr IV .BOLUS ONE Stop: 12/12/20 16:34 Last Admin: 12/12/20 15:40 Dose: 999 mls/hr Documented by: Sodium Chloride (Normal Saline) 1,000 mls @ 75 mls/hr IV ASDIRECTED [facility] Last Admin: 12/12/20 20:00 Dose: 75 mls/hr Documented by: Dextrose/Sodium Chloride (Dextrose 5%-1/2 Ns) 1,000 mls @ 200 mls/hr IV ASDIREC VILMA [facility] Last Admin: 12/13/20 05:27 Dose: 200 mls/hr Documented by: Sodium Chloride (Normal Saline) 1,000 mls @ 150 mls/hr IV ASDIRECTED [facility] Last Admin: 12/13/20 19:01 Dose: 150 mls/hr Documented by: Remdesivir 200 mg/ Sodium (Chloride) 250 mls @ 200 mls/hr IV ONETIME ONE Stop: 12/13/20 19:14 Last Admin: 12/13/20 19:00 Dose: 200 mls/hr Documented by: Influenza Virus Vaccine (Pharmacy To Dose - Influenza Vaccine) 1 each IM ONETIME ONE Stop: 12/12/20 18:15 Influenza Virus Vaccine (Flu Vacc La0324-23(6mos Up)/Pf 60 Mcg/0.5 Ml Syringe) 60 mcg IM .ONCE ONE Stop: 12/12/20 18:31 Iopamidol (Iopamidol 755 Mg/Ml 100 Ml Bottle) 90 ml IV . DIRECTED ONE Stop: 12/15/20 08:37 Last Admin: 12/15/20 09:48 Dose: 90 ml Documented by: Potassium Chloride (Potassium Chloride 20 Meq Tab.Er) 40 meq PO ONETIME ONE Stop: 12/13/20 09:50 Last Admin: 12/13/20 10:10 Dose: 40 meq Documented by: Ticagrelor (Ticagrelor 90 Mg Tab) 180 mg PO ONETIME ONE Stop: 12/12/20 13:10 Last Admin: 12/12/20 13:37 Dose: 180 mg Documented by: Comments:: Patient sitting in bedside chair eating breakfast - Exam Quality Assessment: Supplemental Oxygen, DVT Prophylaxis General: Alert, Oriented, Cooperative, No Acute Distress HEENT: EOMI Neck: Supple Lungs: Decreased Breath Sounds, Crackles Cardiovascular: Regular Rate, Regular Rhythm GI/Abdominal Exam: Normal Bowel Sounds, Soft, Non-Tender Back Exam: Normal Inspection Extremities: Pedal Edema Peripheral Pulses: 2+: Radial (L), Radial (R) Skin: Warm, Dry Neurological: No New Focal Deficit Psy/Mental Status: Alert, Normal Affect, Normal Mood - Patient Data Result Diagrams: 12/15/20 06:35 12/15/20 06:35 Sepsis Event Note - Evaluation Sepsis Screening Result: No Definite Risk - Focused Exam Vital Signs: Vital Signs Temp Pulse Resp BP Pulse Ox 12/16/20 04:00 36.6 C 66 18 143/82 H 94 L 12/16/20 00:00 36.6 C 68 18 128/68 94 L - Problem List & Annotations (1) Hypertension SNOMED Code(s): 84875227 Code(s): I10 - ESSENTIAL (PRIMARY) HYPERTENSION Status: Chronic Current Visit: Yes (2) Essential tremor SNOMED Code(s): 036698921 Code(s): G25.0 - ESSENTIAL TREMOR Status: Chronic Current Visit: Yes (3) Palliative care encounter SNOMED Code(s): 301516227, 170517585 Code(s): Z51.5 - ENCOUNTER FOR PALLIATIVE CARE Status: Acute Current Visit: Yes (4) Abrasion of both knees SNOMED Code(s): 955107681 Code(s): S80.211A - ABRASION, RIGHT KNEE, INITIAL ENCOUNTER; S80.212A - ABRASION, LEFT KNEE, INITIAL ENCOUNTER Status: Acute Current Visit: Yes (5) Acute renal insufficiency SNOMED Code(s): 708976922 Code(s): N28.9 - DISORDER OF KIDNEY AND URETER, UNSPECIFIED Status: Acute Current Visit: Yes (6) Elevated liver function tests SNOMED Code(s): 404211311 Code(s): R79.89 - OTHER SPECIFIED ABNORMAL FINDINGS OF BLOOD CHEMISTRY Status: Acute Current Visit: Yes (7) Fall from bed SNOMED Code(s): 81683508 Code(s): W06.XXXA - FALL FROM BED, INITIAL ENCOUNTER Status: Acute Current Visit: Yes (8) Ketonuria SNOMED Code(s): 534944931 Code(s): R82.4 - ACETONURIA Status: Acute Current Visit: Yes (9) Moderate dehydration SNOMED Code(s): 3748767262033 Code(s): E86.0 - DEHYDRATION Status: Acute Current Visit: Yes (10) NSTEMI (non-ST elevated myocardial infarction) SNOMED Code(s): 57490903 Code(s): I21.4 - NON-ST ELEVATION (NSTEMI) MYOCARDIAL INFARCTION Status: Acute Current Visit: Yes (11) Pneumonia due to COVID-19 virus SNOMED Code(s): 300306164149687370 Code(s): U07.1 - COVID-19; J12.82 - PNEUMONIA DUE TO CORONAVIRUS DISEASE 2018 Status: Acute Current Visit: Yes (12) Hematuria SNOMED Code(s): 41346657 Code(s): R31.9 - HEMATURIA, UNSPECIFIED Status: Acute Current Visit: Yes - Problem List Review Problem List Initiated/Reviewed/Updated: Yes - My Orders Last 24 Hours: My Active Orders 12/15/20 07:35 Ang Chest [CT] Routine 12/15/20 07:45 Sodium Chloride 0.9% [Normal Saline] 500 ml IV ASDIRECTED 12/15/20 08:52 RT Aerosol Therapy [RC] .PRN Albuterol/Ipratropium [DuoNeb 3.0-0.5 MG/3 ML] 3 ml NEB Q2H PRN 12/15/20 11:24 Acetaminophen [TylenoL] 650 mg PO Q6H PRN 12/16/20 09:00 dexAMETHasone 6 mg IVPUSH DAILY - Plan Plan:: 1. COVID-19 positive with Covid pneumonia: Continuous pulse oximetry with supplemental oxygen. Patient is currently maintaining mid 90% oxygenation without supplemental oxygen, this is improved from yesterday. CTA showed no p ulmonary embolism and findings are consistent with Covid associated viral pneumonia. 2. NSTEMI: Troponin continues to normalize. CTA negative for PE. Continue with heart healthy diet and enoxaparin 40 mg twice daily subcu 3. Acute kidney injury, mild dehydration: Acute kidney injury has resolved. 4. Skin abrasions: Routine skin care 5. Chronic medical problems including essential tremor and hypertension: Continue home propranolol 6. DVT prophylaxis: Enoxaparin, 40 mg twice daily subcu 7. GI prophylaxis: Omeprazole 20 mg every morning 8. Disposition: Patient has been weaned off of supplemental oxygen and continues to improve. Patient will be transferred out of [facility] tomorrow mo rning. If he is able to complete activities of daily living he will likely be discharged to home tomorrow
[2020-12-16] MEDS: Enoxaparin 40 MG/0.4 ML Syringe SUBCUT SCH (20:03)
--- NOTE | 2020-12-17 09:15 | PCM.DCSUM1 ---
Discharge Summary - Hospital Course Free Text/Narrative:: 70-year-old gentleman came to the emergency department because of significant weakness, shortness of breath. He was found to be Covid positive and was admitted to inpatient care. He was initially treated with propria Covid management including DVT prophylaxis and breathing treatments. He did not require antibiotics. He was also found to have significantly elevated creatinine kinase after having been on the floor secondary to weakness for some unknown period of time and significantly elevated troponins. Cardiology was consulted and recommended medical management. Patient was given remdesivir and dexamethasone on day 2. He did have an increase in his liver enzymes and remdesivir was stopped after the first dose. Note that he continues to have elevated liver enzymes AST/ALT. However, troponins have normalized and creatinine kinase has significantly lowered to near normal. He has undergone physical and occupational therapy and has been cleared for discharge to home. He has elected to go home with home health and OT/PT. Diagnosis: Stroke: No - Discharge Data Discharge Date: 12/17/20 Discharge Disposition: Home, Self-Care 01 Condition: Fair - Referral to Home Health Date of Face to Face Encounter: 12/17/20 Primary Care Physician: Mark Lockett MD - Discharge Diagnosis/Problem(s) (1) Hypertension SNOMED Code(s): 85961885 ICD Code: I10 - ESSENTIAL (PRIMARY) HYPERTENSION Status: Chronic Current Visit: Yes (2) Essential tremor SNOMED Code(s): 805578718 ICD Code: G25.0 - ESSENTIAL TREMOR Status: Chronic Current Visit: Yes (3) Palliative care encounter SNOMED Code(s): 706783998, 268649832 ICD Code: Z51.5 - ENCOUNTER FOR PALLIATIVE CARE Status: Acute Current Visit: Yes (4) Abrasion of both knees SNOMED Code(s): 865469507 ICD Code: S80.211A - ABRASION, RIGHT KNEE, INITIAL ENCOUNTER; S80.212A - A BRASION, LEFT KNEE, INITIAL ENCOUNTER Status: Acute Current Visit: Yes (5) Acute renal insufficiency SNOMED Code(s): 510460984 ICD Code: N28.9 - DISORDER OF KIDNEY AND URETER, UNSPECIFIED Status: Acute Current Visit: Yes (6) Elevated liver function tests SNOMED Code(s): 429966948 ICD Code: R79.89 - OTHER SPECIFIED ABNORMAL FINDINGS OF BLOOD CHEMISTRY Status: Acute Current Visit: Yes (7) Fall from bed SNOMED Code(s): 50517033 ICD Code: W06.XXXA - FALL FROM BED, INITIAL ENCOUNTER Status: Acute Current Visit: Yes (8) Ketonuria SNOMED Code(s): 221086174 ICD Code: R82.4 - ACETONURIA Status: Acute Current Visit: Yes (9) Moderate dehydration SNOMED Code(s): 3511653690471 ICD Code: E86.0 - DEHYDRATION Status: Acute Current Visit: Yes (10) NSTEMI (non-ST elevated myocardial infarction) SNOMED Code(s): 66798285 ICD Code: I21.4 - NON-ST ELEVATION (NSTEMI) MYOCARDIAL INFARCTION Status: Acute Current Visit: Yes (11) Pneumonia due to COVID-19 virus SNOMED Code(s): 162573932794836860 ICD Code: U07.1 - COVID-19; J12.82 - PNEUMONIA DUE TO CORONAVIRUS DISEASE 2018 Status: Acute Current Visit: Yes (12) Hematuria SNOMED Code(s): 62760063 ICD Code: R31.9 - HEMATURIA, UNSPECIFIED Status: Acute Current Visit: Yes - Patient Summary/Data Consults: Consultations 12/14/20 10:09 OT Evaluation and Treatment [CONS] Routine Please Evaluate and Treat. OT Reason for Consult: ADL's This query below is only for informational purposes and is not editable. Admission Diagnosis/Problem: Pneumonia PT Evaluation and Treatment [CONS] Routine Please Evaluate and Treat. PT Reason for Consult: Ambulation This query below is only for informational purposes and is not editable. Admission Diagnosis/Problem: Pneumonia - Discharge Plan *PRESCRIPTION DRUG MONITORING PROGRAM REVIEWED*: Not Applicable *COPY OF PRESCRIPTION DRUG MONITORING REPORT IN PATIENT KENDRICK: Not Applicable Home Medications: Home Meds Aspirin 81 mg PO DAILY 12/12/20 [History] Multivit-Min/Iron/Folic Acid/K [Centravites Adults Tablet] 1 each PO DAILY [History] Propranolol [Inderal LA] 120 mg PO DAILY 12/12/20 [History] Patient Handouts: Fall Prevention in Hospitals, Adult, Venous Thromboembolism Prevention Forms: ED Department Discharge Referrals: Mark Lockett MD [Primary Care Provider] - - Discharge Summary/Plan Comment DC Time >30 min.: No Total # of Minutes for Discharge Time: 25 Discharge Summary/Plan Comment: Patient will be discharged to home and will go home to stay with his son for at least a few days. He will be referred to home health and OT/PT. No new medications or changes in medications. Note that patient's labs have mostly normalized but he continues to have elevated liver enzymes secondary to treatment with remdesivir. Should follow-up with his primary care physician and follow-up on elevated liver enzymes. - General Info Date of Service: 12/17/20 Subjective Update: He states that he continues to feel better and that he is ready to go home, he has no new or acute complaints at this time Functional Status: Reports: Pain Controlled, Tolerating Diet, Ambulating, Urinating - Review of Systems General: Reports: Weakness HEENT: Reports: No Symptoms Pulmonary: Reports: No Symptoms Cardiovascular: Reports: No Symptoms Gastrointestinal: Reports: No Symptoms Genitourinary: Reports: No Symptoms Musculoskeletal: Reports: No Symptoms Skin: Reports: Other (Patient has healing abrasions as previously listed) Neurological: Reports: Weakness Psychiatric: Reports: No Symptoms - Patient Data Vitals - Most Recent: Last Vital Signs Temp 36.4 C 12/17/20 06:00 Pulse 67 12/17/20 06:00 Resp 16 12/17/20 06:00 BP 128/79 12/17/20 06:00 Pulse Ox 94 L 12/17/20 06:00 Weight - Most Recent: 102.421 kg Lab Results - Last 24 hrs: Laboratory Results - last 24 hr 12/17/20 12/17/20 12/17/20 Range/Units 06:40 06:40 06:40 WBC 7.6 (3.2-10.1) x10-3/uL RBC 4.65 (3.90-5.90) x10(6)uL Hgb 14.3 (12.9-17.7) g/dL Hct 43.1 (38.3-50.1) % MCV 92.7 (80.8-98.7) fL MCH 30.8 (27.0-33.3) pg MCHC 33.2 (28.7-35.3) g/dL RDW 13.5 (12.4-15.0) % Plt Count 219 (117-477) x10(3)uL MPV 8.2 (6.7-11.0) fL Neut % (Auto) 77.1 H (40.3-71.8) % Lymph % (Auto) 11.0 L (15.8-45.3) % Thurston % (Auto) 11.8 (5.5-15.2) % Eos % (Auto) 0.0 L (0.1-6.8) % Baso % (Auto) 0.1 L (0.3-3.8) % Neut # (Auto) 5.9 (1.7-6.9) x10-3/uL Lymph # (Auto) 0.8 (0.5-4.5) x10-3/uL Thurston # (Auto) 0.9 (0.0-1.2) x10-3/uL Eos # (Auto) 0.0 (0.0-0.6) x10-3/uL Baso # (Auto) 0.0 (0.0-0.3) x10-3/uL Sodium 142 (135-145) mmol/L Potassium 3.8 (3.5-5.3) mmol/L Chloride 106 (100-110) mmol/L Carbon Dioxide 27 (21-32) mmol/L BUN 26 H (7-18) mg/dL Creatinine 1.0 (0.70-1.30) mg/dL Est Cr Clr Drug Dosing 68.74 mL/min Estimated GFR (MDRD) > 60 (>60) BUN/Creatinine Ratio 26.0 H (9-20) Glucose 105 (80-116) mg/dL Calcium 8.4 L (8.6-10.2) mg/dL Total Bilirubin 0.6 (0.1-1.3) mg/dL AST 314 H* D (5-25) IU/L ALT 346 H* D (12-36) U/L Alkaline Phosphatase 104 (56-112) IU/L Creatine Kinase 429 H* (60-160) IU/L Troponin I 21.0 (4.0-60.3) pg/mL Total Protein 6.1 (6.0-8.0) g/dL Albumin 2.7 L (3.2-4.6) g/dL Globulin 3.4 g/dL Albumin/Globulin Ratio 0.8 Med Orders - Current: Current Medications Acetaminophen (Acetaminophen 325 Mg Tab) 650 mg PO Q6H PRN PRN Reason: Pain/Fever Last Admin: 12/16/20 00:52 Dose: 650 mg Documented by: Albuterol/Ipratropium (Albuterol/Ipratropium 3.0-0.5 Mg/3 Ml Neb Soln) 3 ml NEB Q2H PRN PRN Reason: Wheezing Dexamethasone (Dexamethasone 4 Mg/Ml 5 Ml Mdv) 6 mg IVPUSH DAILY [facility] Stop: 12/17/20 23:00 Last Admin: 12/16/20 08:18 Dose: 6 mg Documented by: Enoxaparin Sodium (Enoxaparin 40 Mg/0.4 Ml Syringe) 40 mg SUBCUT Q12H [facility] Last Admin: 12/16/20 20:03 Dose: 40 mg Documented by: Sodium Chloride (Normal Saline) 500 mls @ 125 mls/hr IV ASDIRECTED [facility] Last Admin: 12/15/20 09:20 Dose: 125 mls/hr Documented by: Propranolol HCl (Propranolol 60 Mg Cap.Er) 120 mg PO DAILY [facility] Last Admin: 12/16/20 08:01 Dose: 120 mg Documented by: Sodium Chloride (Sodium Chloride 0.9% 10 Ml Syringe) 30 ml FLUSH ASDIRECTED [facility] Last Admin: 12/16/20 08:19 Dose: 30 ml Documented by: Discontinued Medications Acetaminophen (Acetaminophen 325 Mg Tab) 650 mg PO Q6H [facility] Last Admin: 12/15/20 15:54 Dose: Not Given Documented by: Aspirin (Aspirin 81 Mg Tab.Chew) 324 mg PO ONETIME ONE Stop: 12/12/20 13:10 Last Admin: 12/12/20 13:37 Dose: 324 mg Documented by: Dexamethasone (Dexamethasone 4 Mg/Ml 5 Ml Mdv) 6 mg IVPUSH ONETIME ONE Stop: 12/13/20 17:04 Last Admin: 12/13/20 17:18 Dose: 6 mg Documented by: Dexamethasone (Dexamethasone 4 Mg/Ml 5 Ml Mdv) 6 mg IVPUSH ONETIME ONE Stop: 12/14/20 09:19 Last Admin: 12/14/20 10:41 Dose: 6 mg Documented by: Dexamethasone (Dexamethasone 4 Mg/Ml 5 Ml Mdv) 6 mg IVPUSH ONETIME ONE Stop: 12/15/20 07:38 Last Admin: 12/15/20 09:04 Dose: 6 mg Documented by: Enoxaparin Sodium (Enoxaparin 100 Mg/1 Ml Syringe) 100 mg SUBCUT Q12H [facility] Last Admin: 12/13/20 05:26 Dose: 100 mg Documented by: Enoxaparin Sodium (Enoxaparin 100 Mg/1 Ml Syringe) 100 mg SUBCUT Q12H [facility] Last Admin: 12/12/20 21:18 Dose: Not Given Documented by: Enoxaparin Sodium (Enoxaparin 60 Mg/0.6 Ml Syringe) 50 mg SUBCUT Q12H [facility] Last Admin: 12/16/20 06:50 Dose: 50 mg Documented by: Heparin Sodium (Porcine) (Heparin Sodium 5,000 Units/Ml Vial) 5,000 units IVPUSH ONETIME ONE Stop: 12/12/20 13:14 Last Admin: 12/12/20 13:37 Dose: 5,000 units Documented by: Sodium Chloride (Normal Saline) 1,000 mls @ 999 mls/hr IV .BOLUS ONE Stop: 12/12/20 10:26 Last Admin: 12/12/20 09:40 Dose: 999 mls/hr Documented by: Bamlanivimab 700 mg/Etesevimab 1,400 mg/ Sodium Chloride 160 mls @ 310 mls/hr IV ONETIME ONE Stop: 12/12/20 10:30 Last Admin: 12/12/20 10:08 Dose: 310 mls/hr Documented by: Heparin Sodium/Sodium Chloride (Heparin 25,000 Units In 1/2 Ns 500 Ml) 25,000 units in 500 mls @ 19.998 mls/hr IV TITRATE WILDA; Protocol Last Admin: 12/12/20 13:38 Dose: 10.02 units/kg/hr, 19.998 mls/hr Documented by: Sodium Chloride (Normal Saline) 1,000 mls @ 999 mls/hr IV .BOLUS ONE Stop: 12/12/20 14:40 Last Admin: 12/12/20 13:40 Dose: 999 mls/hr Documented by: Sodium Chloride (Normal Saline) 1,000 mls @ 999 mls/hr IV .BOLUS ONE Stop: 12/12/20 16:34 Last Admin: 12/12/20 15:40 Dose: 999 mls/hr Documented by: Sodium Chloride (Normal Saline) 1,000 mls @ 75 mls/hr IV ASDIRECTED [facility] Last Admin: 12/12/20 20:00 Dose: 75 mls/hr Documented by: Dextrose/Sodium Chloride (Dextrose 5%-1/2 Ns) 1,000 mls @ 200 mls/hr IV ASDIRECTED [facility] Last Admin: 12/13/20 05:27 Dose: 200 mls/hr Documented by: Sodium Chloride (Normal Saline) 1,000 mls @ 150 mls/hr IV ASDIRECTED [facility] Last Admin: 12/13/20 19:01 Dose: 150 mls/hr Documented by: Remdesivir 200 mg/ Sodium (Chloride) 250 mls @ 200 mls/hr IV ONETIME ONE Stop: 12/13/20 19:14 Last Admin: 12/13/20 19:00 Dose: 200 mls/hr Documented by: Influenza Virus Vaccine (Pharmacy To Dose - Influenza Vaccine) 1 each IM ONETIME ONE Stop: 12/12/20 18:15 Influenza Virus Vaccine (Flu Vacc [id number](6mos Up)/Pf 60 Mcg/0.5 Ml Syringe) 60 mcg IM .ONCE ONE Stop: 12/12/20 18:31 Iopamidol (Iopamidol 755 Mg/Ml 100 Ml Bottle) 90 ml IV . DIRECTED ONE Stop: 12/15/20 08:37 Last Admin: 12/15/20 09:48 Dose: 90 ml Documented by: Potassium Chloride (Potassium Chloride 20 Meq Tab.Er) 40 meq PO ONETIME ONE Stop: 12/13/20 09:50 Last Admin: 12/13/20 10:10 Dose: 40 meq Documented by: Ticagrelor (Ticagrelor 90 Mg Tab) 180 mg PO ONETIME ONE Stop: 12/12/20 13:10 Last Admin: 12/12/20 13:37 Dose: 180 mg Documented by: Comments:: Patient had just left the bathroom and was walking back to bed when I entered the room. He is walking without assistance. - Exam Quality Assessment: Reports: DVT Prophylaxis General: Reports: Alert, Oriented, Cooperative, No Acute Distress HEENT: Reports: EOMI Neck: Reports: Supple Lungs: Reports: Clear to Auscultation, Normal Respiratory Effort Cardiovascular: Reports: Regular Rate, Regular Rhythm GI/Abdominal Exam: Normal Bowel Sounds, Soft, Non-Tender Back Exam: Reports: Normal Inspection Extremities: Pedal Edema Skin: Reports: Warm, Other (Healing abrasions on forearms, shins, knees) Wound/Incisions: Reports: Healing Well Neurological: Reports: No New Focal Deficit Psy/Mental Status: Reports: Alert, Normal Affect, Normal Mood
[2020-12-17] MEDS: Dexamethasone 4 MG/ML 5 ML MDV IVPUSH SCH (09:26)
[2020-12-17] MEDS: Propranolol 60 MG Cap.ER PO SCH (09:28)
[2020-12-17] MEDS: Enoxaparin 40 MG/0.4 ML Syringe SUBCUT SCH (09:28)
[2020-12-17] MEDS: Sodium Chloride 0.9% 10 ML Syringe FLUSH SCH (09:43)
== END 2020-12-17 13:10 | disposition home or self-care (01) | DRG 177 ==
LOC: FB.ED 09:10 → FB.MS 16:29
PROVIDERS: ADMIT Student in an Organized Health Care Education/Training Program; ATTEND Student in an Organized Health Care Education/Training Program
PROC: XW033E5 Introduction of Remdesivir Anti-infective into Peripheral Vein, Percutaneous Approach, New Technology Group 5 (ICD-10-PCS; principal; 2020-12-12)
PROC: 3E0333Z Introduction of Anti-inflammatory into Peripheral Vein, Percutaneous Approach (ICD-10-PCS; 2020-12-12)
PROC: XW033F6 Introduction of Bamlanivimab Monoclonal Antibody into Peripheral Vein, Percutaneous Approach, New Technology Group 6 (ICD-10-PCS; 2020-12-12)
DX: U07.1 COVID-19 (principal); I21.4 Non-ST elevation (NSTEMI) myocardial infarction; M62.82 Rhabdomyolysis; J12.82 Pneumonia due to coronavirus disease 2019; N17.9 Acute kidney failure, unspecified; R79.89 Other specified abnormal findings of blood chemistry; I10 Essential (primary) hypertension; G25.0 Essential tremor; Z51.5 Encounter for palliative care; S80.211A Abrasion, right knee, initial encounter; S80.212A Abrasion, left knee, initial encounter; W06.XXXA Fall from bed, initial encounter; R25.1 Tremor, unspecified; R82.4 Acetonuria; E86.0 Dehydration; R31.9 Hematuria, unspecified; Z79.82 Long term (current) use of aspirin; Z79.899 Other long term (current) drug therapy; Z88.0 Allergy status to penicillin; Z86.19 Personal history of other infectious and parasitic diseases; Z86.16 Personal history of COVID-19; Z23 Encounter for immunization
CPT/HCPCS: 36415; 71045; 71275; 80048; 80053; 81001; 82550; 84145; 84443; 84450; 84460; 84484; 85025; 85379; 85610; 85730; 86140; 93005; 94150; 94760; 96365; 97110-GP; 97116-GP; 97161-GP; 97165-GO; 97530-GO; 97535-GO; 99285-25; A9270-GY; J1100; J1644; J1650; J7030; J7042; J7050; M0245; Q0245; Q9967